=== PATIENT | male | born 1970 | race Two or more races ===

== ENCOUNTER → 2023-04-10 | Outpatient (CLI) | payer MEDICAID | END | disposition home or self-care (01) | LOC: US 09:52 | DX: J90 Pleural effusion, not elsewhere classified (principal) | CPT/HCPCS: 32555; 71045; 76604; C1729; 76942 ==

== ENCOUNTER → 2023-04-16 | Outpatient (CLI) | payer MEDICAID | END | disposition home or self-care (01) | LOC: XYW 09:56 | DX: J90 Pleural effusion, not elsewhere classified (principal) | CPT/HCPCS: 32555; 71045; 76604; C1729; 76942 ==

== ENCOUNTER 2024-08-07 00:07 | Inpatient (IN) | payer MEDICAID ==
[2024-08-07] VITALS (10 sets, daily range): BP systolic 110–157; BP diastolic 62–89; PULSE 66–89; RESP 18–20; TEMP 96.4–98; O2SAT 96–100
[~2024-08-07] VITALS: Ht 172.7 cm; Wt 72.1 kg
[2024-08-07] MEDS ORDERED: MORPHINE SULFATE INJ 2 MG/ml SYRG IV PRN (03:15)
[2024-08-07] MEDS ORDERED: NITROGLYCERIN 0.4 MG SL TAB SL PRN (03:15)
[2024-08-07] MEDS ORDERED: SODIUM BICARB 50mEq/50ml Vial 50 ML in SOD CHL 0.45% 1,000 ML IV SCH (03:15)
[2024-08-07] MEDS: ALBUTEROL SULF 2.5 MG/0.5ML(0.5%) NEB SOLN NEB ONE (03:26)
[2024-08-07] MEDS ORDERED: cloNIDine HCL 0.1 MG TAB PO PRN (03:30)
[2024-08-07 03:47] LABS: Hematocrit 31.2 % (41.0-53.0); Hemoglobin 10.4 g/dL (13.5-17.5); Mean Corpuscular Hemoglobin 31.9 pg (28.0-32.0); Mean Corpuscular Hgb Conc. 33.2 g/dL (32.0-36.0); Mean Corpuscular Volume 96.1 fL (80.0-100.0); Platelet Count (auto) 237 10^3/uL (140-450); Red Blood Cells 3.25 10^6/uL (4.5-5.90); Red Cell Distribution Width 13.7 % (11.8-14.3); White Blood Cell 6.8 10^3/uL (4.4-10.8)
[2024-08-07 03:56] LABS: Band Neutrophils % (manual) 0; Basophils % (manual) 0 (0.0-2.0); Blast Cells 0; Metamyelocytes % 0; Myelocytes % 0; Promyelocytes % 0; Reactive Lymphocytes 0
[2024-08-07 04:05] LABS: Alanine Aminotransferase 22 U/L (7-40); Albumin 3.8 g/dL (3.2-4.8); Anion Gap 10 (5-15); Aspartate Aminotransferase 22 U/L (13-40); Sodium 143 mmol/L (136-145); Total Protein 6.2 g/dL (5.7-8.2)
[2024-08-07 04:21] LABS: Alkaline Phosphatase 184 U/L (46-116); Bilirubin, Total 0.3 mg/dL (0.2-1.0); Blood Urea Nitrogen 71 mg/dL (9-23); Calcium 8.6 mg/dL (8.7-10.4); Carbon Dioxide 16 mmol/L (20-31); Chloride 117 mmol/L (98-107); Glucose 132 mg/dL (74-106)
[2024-08-07 04:22] LABS: Potassium 5.7 mmol/L (3.5-5.1)
[2024-08-07] MEDS: InsuLIN REG 1unit/0.01ml Soln (100units/ml) IV ONE (04:33)
[2024-08-07] MEDS: SODIUM ZIRCONIUM CYCL 10 GM PAK PO ONE (04:39)
[2024-08-07 04:58] LABS: Eosinophils % (manual) 12 (0-7); Lymphocytes % (manual) 15 (10.0-50.0); Monocytes % (manual) 3 (0-12); Platelet Estimate Adequate
[2024-08-07] MEDS: INSULIN LISPRO (HUMAN) 100 UNITS/ML ML SC SCH ×2 (06:12→22:00)
[2024-08-07] MEDS: INSULIN LANTUS (GLARGINE) 1 /0.01ml (100units/ml) SC SCH (06:13)
--- NOTE | 2024-08-07 08:19 | ECG ---
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
[2024-08-07] MEDS: SODIUM BICARB 50mEq/50ml Vial 50 ML in SOD CHL 0.45% 1,000 ML IV SCH ×3 (10:30→22:45)
--- NOTE | 2024-08-07 11:18 | DVHCONRES ---
Date Seen: August 07, 2024 Resident Creating Document: GLENN CROFT History of Present Illness This is a 53-year-old male with PMH congestive heart failure-EF 25%, recurrent pleural effusion, CKD, diabetes mellitus type 2 who was sent to the ER by his PCP because of hyperkalemia. Patient denied any acute complaint. Patient followed [facility] for hemodialysis Saturday//Saturday and has been not going for dialysis for the past 2 weeks. He has a tunneled catheter. Patient denies any fevers/chills/vomiting/diarrhea/nausea/urinary symptoms. Arrival to the ER, patient was vitally stable, CBC showing normocytic anemia, potassium 5.7, BUN/creatinine 71/3.9. Past medical history: Congestive heart failure-EF 25%, recurrent pleural effusion, CKD, diabetes mellitus type 2 Social history: Lives with family, denies smoking/drinking/drug use. Patient seen and examined at the bedside. Started bicarbonate 650 mg TID. Family History: Diabetes mellitus G8 MOTHER Allergies: Coded Allergies: NO KNOWN ALLERGIES (Unverified , 08/07/24) Current Medications Current Medications Medications (Trade) Dose Ordered Sig/Wayne Route PRN Reason Start Time Stop Time Status Last Admin Nitroglycerin (Ntrostat Sublingual) 0.4 mg Q5MINP PRN SL FOR CHEST PAIN 08/07/24 03:15 Morphine Sulfate 2 mg Q30M PRN IV FOR CHEST PAIN 08/07/24 03:15 Sodium Bicarbonate 50 ml/ Sodium Chloride 1,050 ml @ 50 mls/hr Q21H IV 08/07/24 03:15 08/07/24 03:26 DC Sodium Bicarbonate 50 ml/ Sodium Chloride 1,050 ml @ 100 mls/hr [id number] IV 08/07/24 03:30 08/07/24 10:30 Insulin Human Lispro (HumaLOG) AC SC 08/07/24 07:00 Insulin Human Lispro (HumaLOG) HS SC 08/07/24 22:00 Clonidine HCl (Catapres Tablet) UD PRN PO SBP>160 08/07/24 03:30 Insulin Glargine (Lantus) 10 units QAM SC 08/07/24 07:00 Vital Signs Vital Signs Date Time Temp Pulse Resp B/P (MAP) Pulse Ox O2 Delivery O2 Flow Rate FiO2 08/07/24 10:00 96 Room Air 0.0 08/07/24 10:00 21 08/07/24 09:00 97.4 89 18 110/62 (78) 97.4 Physical Exam Patient lying in bed, in no acute distress General: Well-built, afebrile, palor, mucosae are moist Cardiovascular: Regular S1 and S2. No murmurs, gallops or rubs. No JVD elevation. Minimal pedal edema bilaterally Respiratory: Normal B/L air entry on room air. Clear lung sounds on auscultation Abdomen: Soft, nontender, nondistended, normoactive bowel sounds, no rebound tenderness, no organomegaly, no masses Genitourinary: Deferred MSK/skin: Mobilizes 4 limbs. Skin is dry and warm Neurological: No motor, no sensitive deficits, normal speech. Pupils are isocoric and reactive. Psych/Mental Status: A/Ox3 Labs/Diagnostic Data Labs Test 08/07/24 10:53 08/07/24 06:10 08/07/24 03:34 Range/Units POC Glucose 92 70-106 mg/dl White Blood Count 6.8 4.4-10.8 10^3/uL Red Blood Count 3.25 L 4.5-5.90 10^6/uL Hemoglobin 10.4 L 13.5-17.5 g/dL Hematocrit 31.2 L 41.0-53.0 % Mean Corpuscular Volume 96.1 80.0-100.0 fL Mean Corpuscular Hemoglobin 31.9 28.0-32.0 pg Mean Corpuscular Hemoglobin Concent 33.2 32.0-36.0 g/dL Red Cell Distribution Width 13.7 11.8-14.3 % Platelet Count 237 140-450 10^3/uL Mean Platelet Volume 7.6 6.9-10.8 fL Neutrophils (%) (Auto) 37.0-80.0 % Lymphocytes (%) (Auto) 10.0-50.0 % Monocytes (%) (Auto) 0.0-12.0 % Basophils (%) (Auto) 0.0-2.0 % Neutrophils # (Auto) 1.6-8.6 10 ^3/uL Lymphocytes # (Auto) 0.4-5.4 10 ^3/uL Monocytes # (Auto) 0-1.3 10 ^3/uL Differential Total Cells Counted 100.0 100 Neutrophils % (Manual) 70 37.0-80.0 Band Neutrophils % (Manual) 0 Lymphocytes % (Manual) 15 10.0-50.0 Monocytes % (Manual) 3 0-12 Eosinophils % (Manual) 12 H 0-7 Basophils % (Manual) 0 0.0-2.0 Metamyelocytes % (manual) 0 Myelocytes % (Manual) 0 Promyelocytes % (Manual) 0 Blast Cells % (Manual) 0 Reactive Lymphocytes 0 Platelet Estimate Adequate Hemoglobin A1c 6.0 H <5.7 % A1C Total Bilirubin 0.3 0.2-1.0 mg/dL Aspartate Amino Transferase (AST) 22 13-40 U/L Alanine Aminotransferase (ALT) 22 7-40 U/L Alkaline Phosphatase 184 H 46-116 U/L Total Protein 6.2 5.7-8.2 g/dL Albumin 3.8 3.2-4.8 g/dL Assessment ESRD on hemodialysis Hyperkalemia Congestive heart failure-no exacerbation-EF 25% Recurrent pleural effusion Diabetes mellitus type 2-hemoglobin A1c 6 Plan: Given the resolved hyperkalemia, patient denying any acute symptoms, patient is stable to be discharged at this point. No acute nephrology workup indicated at this time. Patient is extensively counseled regarding the importance of routine hemodialysis sessions and medication compliance. Risk and benefits advice, patient agreed to follow up with [facility] dialysis tomorrow. Started p.o. bicarbonate 650 mg TID. Potassium 4.4 now Plan discussed with patient in which all questions have been answered Case discussed with Dr. Obrien Addendum Patient seen and examined, plan discussed with resident. Agree with above, we will follow closely missed 2 weeks of HD HD tomorrow if still here otherwise resume outpt HD Plan discussed with: Patient GLENN CROFT RESIDENT August 07, 2024 11:18 TAYLOR OBRIEN MD August 07, 2024 20:58
[2024-08-07 11:23] LABS: Potassium 4.4 mmol/L (3.5-5.1)
[2024-08-07 11:24] LABS: Anion Gap 11 (5-15); Calcium 8.9 mg/dL (8.7-10.4); Carbon Dioxide 16 mmol/L (20-31); Chloride 118 mmol/L (98-107); Sodium 145 mmol/L (136-145)
[2024-08-07 11:29] LABS: BUN/Creatinine Ratio 17.2 (10.0-20.0)
[2024-08-07 11:30] LABS: Blood Urea Nitrogen 68 mg/dL (9-23); Glucose 166 mg/dL (74-106)
[2024-08-07 11:50] LABS: Magnesium 2.2 mg/dL (1.6-2.6)
[2024-08-07 11:53] LABS: Phosphorus 5.5 mg/dL (2.4-5.1)
--- NOTE | 2024-08-07 12:33 | DVH ---
RENAL ULTRASOUND History: duyen Comparison: None Technique: Multiple real-time sonographic images of the kidney and bladder were obtained in conjuncti on with Doppler imaging. Findings: Bilateral kidneys are echogenic in appearance. The right kidney measures 12 cm and demonstrates no evidence of hydronephrosis, perinephric fluid col lection, or shadowing stone. The left kidney measures 11.3 cm and demonstrates no evidence of hydronephrosis, perinephric fluid co llection, or shadowing stone. Urinary bladder: Prevoid urinary bladder volume is 411 mL. Patient did not have urge to void. Impression: 1. No hydronephrosis. 2. Echogenic kidneys, which can be seen with medical renal disease. 3. Bladder volume 411 cc. Patient did not have urge to urinate.
[2024-08-07] MEDS: SODIUM BICARBONATE 650 MG TAB PO ONE (17:37)
[2024-08-07 18:29] LABS: Sodium Urine 71 mmol/L (40-220)
[2024-08-07 18:37] LABS: Creatinine, Urine 86.37 mg/dL (30.0-125.0)
[2024-08-07 18:40] LABS: Urine Protein/Creatinine Ratio 9.42
[2024-08-07 18:48] LABS: Amphetamine Screen, Urine Neg (NEGATIVE); Barbiturate Scree,Urine Neg (NEGATIVE); Benzodiazephine Screen, Urine Neg (NEGATIVE); Cannabinoid Screen, Urine Neg (NEGATIVE); Cocaine Screen, Urine Neg (NEGATIVE); Opiate Scree,Urine Neg (NEGATIVE); Phencyclidine Screen, Urine Neg (NEGATIVE)
--- NOTE | 2024-08-07 23:09 | DVHHP2 ---
Admitting Diagnosis: Acute on chronic renal failure Severe hyperkalemia History of Present Illness Gabi Hassan, 53-yr-old middle-aged male with known history of cardiomyopathy, EF 20%, congestive heart failure and chronic renal failure -currently on hemodialysis therapy is directly admitted for further eval and management of acute on chronic renal failure complicated by hyperkalemia. In brief summary, patient was recently diagnosed cardiomyopathy, low EF 20% through echocardiogram and MUGA scan at [facility] in april 2024. He was treated for anasarca, bilateral pleural effusions from CHF as well as acute renal failure with serum creatinine high at 2.96 mg/dL and GFR at 17-25 mL/minute. He was then started on hemodialysis therapy by Dr. Doherty. He responded to hemodialysis therapy very well and remains symptom-free for CHF. During his outpatient visit, patient reported satisfactory Urine outputs as well as improvement of symptoms from CHF. He had a question whether he could come off hemodialysis therapy. I advised him to discuss with His aviation safety inspector prior to making decision to discontinue hemodialysis therapy Upon receiving a call from [facility] at evening of 08/06/2024 about his abnormal labs- serum K -7 mM/dL, CO2 16 mM/dL, 81 and creatinine 4.22 mg/dL I tried to reach patient through his cell phone at same hour. However I was not able to contact him for his disbelief that there were not enough reason for someone to call him from healthcare facility scheduling. Finally I was able to contact him at late evening hours and consensus was that he will receive direct bed hospitalization at [facility]. Past Medical History Past medical history records: Reviewed Cardiovascular history: Cardiomyopathy-global hypokinesis, EF 20% moderate MR, dilated left atrium and ventricle by 2D echo, Currently followed by Dr. Hirsch @ [facility] Pacemaker placement Genitourinary history: Chronic kidney disease-CRF on hemodialysis Serum creatinine 3.9 mg/dL, GFR 17 mL/minute Endocrine history: Fairly well-controlled diabetes Hem-oncology history: Chronic iron-deficiency anemia Past Surgical History Tunnel catheter placement in R IJ Pacemaker placement Social History Retired, lives with his spouse History of smoking: Cigarettes: Denies History of smoking E cigarettes: Denies History of smoking marijuana: Denies History of drinking alcohol: Drinks socially in sober manners History of substance abuse: Denies Patient Family History: Diabetes mellitus G8 MOTHER Allergies: Coded Allergies: NO KNOWN ALLERGIES (Unverified , 08/07/24) Home Meds Active Scripts Hydralazine Hcl (Hydralazine Hcl) 50 Mg Tab, 1 TAB PO BID, #180 TAB 3 Refills Prov:GIRMA MABRY MD 08/08/24 Sodium Bicarbonate (Sodium Bicarbonate) 650 Mg Tab, 650 MG PO TID for 90 Days, #270 TAB Prov:GIRMA MABRY MD 08/08/24 Nitroglycerin (NTROSTAT SUBLINGUAL) 0.4 Mg Sl, 0.4 MG SL Q5MINP PRN for 25 Days, #25 TAB Prov:GIRMA MABRY MD 08/08/24 Insulin Lispro (Human) (Humalog) 100 Unit/Ml Inj, 5 UNITS SC AC for 90 Days, INJ Prov:GIRMA MABRY MD 08/08/24 Insulin Glargine (Lantus) 100 Unit/Ml Inj, 15 UNITS SC QAM for 90 Days, #3 INJ Prov:GIRMA MABRY MD 08/08/24 Current Medications Current Medications Medications (Trade) Dose Ordered Sig/[place] Route PRN Reason Start Time Stop Time Status Last Admin Insulin Human Lispro (HumaLOG) HS SC 08/07/24 22:00 08/07/24 22:00 Sodium Bicarbonate 50 ml/ Sodium Chloride 1,050 ml @ 120 mls/hr Q8H45M IV 08/07/24 12:30 08/07/24 12:49 DC 08/07/24 12:30 Sodium Bicarbonate 650 mg TID PO 08/07/24 22:00 08/08/24 06:06 Sodium Bicarbonate 50 ml/ Sodium Chloride 1,050 ml @ 50 mls/hr Q21H IV 08/07/24 22:45 08/07/24 22:45 Review of Systems Constitutional: Denies easy tiredness, denies fever chills weight loss HEENT: Denies headache/conjunctival/ENT pains or congestion, Denies hoarse voice, hearing or visual deficit Neck: Denies cervical spine local/radicular pains, denies goiters/stridor Denies stiffness spasms, reduced ROM, RS: Denies chest congestion, cough, wheezing, SOB, pleuritic ch est pains CVS: Denies angina, palpitation, SOB, edema, orthopnea, PND GI: Denies loss of appetite, abdominal pains, tenderness, N/V/D, Denies melena, GI bleeding,constipation, : Denies dysuria, flank pains, frequency, hematuria, Denies passing foul odor/cloudy turbid urine, nocturia MS: Denies generalized aches/pains, back pains, spasms, stiffness, Denies radicular pains, denies generalized myalgias/muscle weakness EXTs: Denies edema, rash, open wounds, discoloration, radicular pains NEURO: Denies hypersomnolence, confused mental status, Denies focal weakness or seizures/tremors/myoclonic jerks SKIN: Denies rashes or open ulcerated wound ENDOCRINE: Reports polyuria, polydipsia, denies intolerance to heat and cold HEM/LYMPH: Denies easy tiredness, bruising, lymphadenopathy ALLERGY: Denies allergic reactions Psychiatry: Denies anxiety or depression disorder Otherwise the Review of Systems is Negative as per History & Physical Interview: Yes Vital Signs Vital Signs Date Time Temp Pulse Resp B/P (MAP) Pulse Ox O2 Delivery O2 Flow Rate FiO2 08/08/24 10:00 95 Room Air* 0 21 08/08/24 09:00 97.9 76 16 152/81 (104) 97.9 Physical Exam Vital signs Vital Signs Date Time Temp Pulse Resp B/P (MAP) Pulse Ox O2 Delivery O2 Flow Rate FiO2 08/07/24 17:00 98 85 18 139/82 (101) 98 Room Air 0.0 08/07/24 13:00 97.5 79 18 134/73 (93) 96 21 08/07/24 09:00 97.5 79 18 137/73 (93) 96 08/07/24 05:00 97.9 89 20 128/73 (91) 98 Physical exam General appearance: Well-developed, mal-nourished middle-aged male Awake alert oriented x3 no respiratory distress Head: Normocephalic nontraumatic Eyes: EOMI, JENELLE, sclera nonicteric, conjunctive- pale + 1 ENT: No congestion, NSL bilateral symmetrical, oral mucosa dry Neck: Supple, carotid upstroke +2, trachea midline, JVD-0 cm, R IJ-SD catheter site clean, No goiter, no lymph nodes, C spine- Full ROM, no use of sternomastoid Chest: Bilateral symmetrical expansions, No costochondral tenderness Pacemaker site clean Lungs: clear breath sounds all over except reduced at bases CVS: PMI-2 cm lateral to L MCL in fifth ICS , S1- S2 NSR no S3 GI: Abdomen soft, obese, bowel sounds normoactive No focal tenderness, no rebound tenderness No hepatosplenomegaly, no mass no hernia , : No CVA tenderness, no bladder mass palpable, genitalia-NE SKIN: Turgor dry, color pale, no rash, no icterus, no ulcers No varicosity, or wounds EXTs: No edema, color pale, no rash, no ecchymosis, No open wounds Distal pulses +2 capillary refill <2 seconds JOINTS: full range of motion BACK: No apparent lumbosacral spinal muscle tenderness, LYMPH NODES: No cervical, axillary or inguinal lymph nodes Neuro: Awake alert oriented 4, coherent, all cognitives- intact No pronator drift, no focal motor deficit, No focal sensory deficit, DTR +2, gait steady PSYCH: Affect mildly depressed-denies suicidal ideation Labs Test Comprehensive metabolic panel 08/07/24 10:53 08/07/24 06:10 08/07/24 03:34 Range/Units Sodium 143 136-145 mmol/L Potassium 5.7 3.5-5.1 mmol/L Chloride 117 98-107 mmol/L CO2 16 20--31 mmol/L BUN 71 09-23 mg/dL Creatinine 3.95 0.7 -1.3 mg/dL Anion gap 10 GFR 17 > 90 mL/minute POC Glucose 92 70-106 mg/dl Serum calcium 8.6 Complete blood count (CBC) White Blood Count 6.8 4.4-10.8 10^3/uL Red Blood Count 3.25 L 4.5-5.90 10^6/uL Hemoglobin 10.4 L 13.5-17.5 g/dL Hematocrit 31.2 L 41.0-53.0 % Mean Corpuscular Volume 96.1 80.0-100.0 fL Mean Corpuscular Hemoglobin 31.9 28.0-32.0 pg Mean Corpuscular Hemoglobin Concent 33.2 32.0-36.0 g/dL Red Cell Distribution Width 13.7 11.8-14.3 % Platelet Count 237 140-450 10^3/uL Mean Platelet Volume 7.6 6.9-10.8 fL Neutrophils (%) (Auto) 37.0-80.0 % Lymphocytes (%) (Auto) 10.0-50.0 % Monocytes (%) (Auto) 0.0-12.0 % Basophils (%) (Auto) 0.0-2.0 % Neutrophils # (Auto) 1.6-8.6 10 ^3/uL Lymphocytes # (Auto) 0.4-5.4 10 ^3/uL Monocytes # (Auto) 0-1.3 10 ^3/uL Differential Total Cells Counted 100.0 100 Neutrophils % (Manual) 70 37.0-80.0 Band Neutrophils % (Manual) 0 Lymphocytes % (Manual) 15 10.0-50.0 Monocytes % (Manual) 3 0-12 Eosinophils % (Manual) 12 H 0-7 Basophils % (Manual) 0 0.0-2.0 Metamyelocytes % (manual) 0 Myelocytes % (Manual) 0 Promyelocytes % (Manual) 0 Blast Cells % (Manual) 0 Reactive Lymphocytes 0 Platelet Estimate Adequate Hemoglobin A1c 6.0 H <5.7 % A1C Total Bilirubin 0.3 0.2-1.0 mg/dL Aspartate Amino Transferase (AST) 22 13-40 U/L Alanine Aminotransferase (ALT) 22 7-40 U/L Alkaline Phosphatase 184 H 46-116 U/L Total Protein 6.2 5.7-8.2 g/dL Albumin 3.8 3.2-4.8 g/dL [facility] Test Date: 2024-08-07 Test Time: 04:51:32 Pat Name: DARLYN AQUINO Department: Room: 0222T B 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 DICTATED BY: DICTATED DATE/TIME:08/07/24 0451 ELECTRONICALLY SIGNED BY: ELECTRONICALLY CO-SIGNED BY: Results Labs Test 08/08/24 05:50 08/08/24 05:04 08/07/24 17:00 08/07/24 10:53 Range/Units POC Glucose 122 H 70-106 mg/dl White Blood Count 6.0 4.4-10.8 10^3/uL Red Blood Count 3.11 L 4.5-5.90 10^6/uL Hemoglobin 9.9 L 13.5-17.5 g/dL Hematocrit 29.8 L 41.0-53.0 % Mean Corpuscular Volume 95.8 80.0-100.0 fL Mean Corpuscular Hemoglobin 31.8 28.0-32.0 pg Mean Corpuscular Hemoglobin Concent 33.2 32.0-36.0 g/dL Red Cell Distribution Width 13.9 11.8-14.3 % Platelet Count 227 140-450 10^3/uL Mean Platelet Volume 7.8 6.9-10.8 fL Neutrophils (%) (Auto) 37.0-80.0 % Lymphocytes (%) (Auto) 10.0-50.0 % Monocytes (%) (Auto) 0.0-12.0 % Eosinophils (%) (Auto) 0.0-7.0 % Basophils (%) (Auto) 0.0-2.0 % Neutrophils # (Auto) 1.6-8.6 10 ^3/uL Lymphocytes # (Auto) 0.4-5.4 10 ^3/uL Monocytes # (Auto) 0-1.3 10 ^3/uL Differential Total Cells Counted 100.0 100 Neutrophils % (Manual) 65 37.0-80.0 Band Neutrophils % (Manual) 0 Lymphocytes % (Manual) 16 10.0-50.0 Monocytes % (Manual) 3 0-12 Eosinophils % (Manual) 16 H 0-7 Basophils % (Manual) 0 0.0-2.0 Metamyelocytes % (manual) 0 Myelocytes % (Manual) 0 Promyelocytes % (Manual) 0 Blast Cells % (Manual) 0 Reactive Lymphocytes 0 Platelet Estimate Adequate Anisocytosis (manual) Slight Sarika Cells Few Sodium Level 145 136-145 mmol/L Potassium Level 4.6 3.5-5.1 mmol/L Chloride Level 117 H 98-107 mmol/L Carbon Dioxide Level 17 L 20-31 mmol/L Anion Gap 11 5-15 Blood Urea Nitrogen 63 H 9-23 mg/dL Creatinine 3.59 H 0.700-1.30 mg/dL Glomerular Filtration Rate Calc 19 >90 mL/min BUN/Creatinine Ratio 17.5 10.0-20.0 Serum Glucose 117 H 74-106 mg/dL Calcium Level 8.4 L 8.7-10.4 mg/dL Total Bilirubin 0.3 0.2-1.0 mg/dL Aspartate Amino Transferase (AST) 20 13-40 U/L Alanine Aminotransferase (ALT) 22 7-40 U/L Alkaline Phosphatase 167 H 46-116 U/L Total Protein 5.9 5.7-8.2 g/dL Albumin 3.5 3.2-4.8 g/dL Urine Creatinine 86.37 30.0-125.0 mg/dL Urine Protein/Creatinine Ratio 9.42 Urine Sodium 71 40-220 mmol/L Urine Potassium 18 12-62 mmol/L Urine Total Protein 814.0 H 1-14 mg/dL Urine Opiates Screen Neg NEGATIVE Urine Fentanyl Screen Neg NEGATIVE Urine Barbiturates Screen Neg NEGATIVE Urine Phencyclidine Screen Neg NEGATIVE Urine Amphetamines Screen Neg NEGATIVE Urine Benzodiazepines Screen Neg NEGATIVE Urine Cocaine Screen Neg NEGATIVE Urine Cannabinoids Screen Neg NEGATIVE Phosphorus Level 5.5 H 2.4-5.1 mg/dL Magnesium Level 2.2 1.6-2.6 mg/dL Test 08/07/24 03:34 Range/Units Hemoglobin A1c 6.0 H <5.7 % A1C Vitamin D 25-Hydroxy 24.8 L 30.0-100 ng/mL Parathyroid Hormone (Intact) 135.2 H 18.4-80.1 pg/mL EC IV in five point three Primary Diagnosis Acute on chronic renal failure Severe hyperkalemia Admitting Diagnosis: 1. Acute on chronic renal failure ESRD from diabetic nephropathy Cardiorenal syndrome 2. Hyperkalemia from acute renal failure 3. Acute kidney injury from a. Intravascular volume depletion b. CKD from diabetes and hypertensive c. Cardiorenal syndrome 4. Fairly well-controlled NIDDM 5. Noncompliance with hemodialysis 2' Diagnosis/Comorbidities Cardiomyopathy Medical decision making Overall patient's hemodynamic condition appears clinically ill from development of Acute on chronic renal failure complicated by hyperkalemia-lab results from [facility] reflects serum K 7, BUN 81 Creatinine 4.22 mg/dL GFR 17 mL ---priority is to deploy medical treatment for hyperkalemia -correct state of hypovolemia acute kidney injury -refer patient to aviation safety inspector ---recommended patient tohypotonic saline with bi carb infusion, Hum R IV, albuterol medneb treatment for management of hyperkalemia ..... Recommended injection Lantus 10 units subQ daily and Humalog through sliding scale for management of diabetes Plan Treatment plans as of today Admit to telemetry Normal saline with two amps of bicarb at 100 mL/hr Humulin R 5 units IV push with D 50 % 50 mL x one dose Lokelma 30 g p.o. x1 dose Inj Lantus 10 units subQ daily Inj. Humalog through sliding scale Dr. Cabello on consult for management of CRF through dialysis Reconciled home medications Follow-up CBC CMP ADA 1800 memo, low salt 2 g renal diet VTE precautions Update patient The patient and/or family is well informed by me about 1. Clinical impression, treatment plans, side effects of medications, course of the disease and guarded prognosis 2. All patient's question/ concerns raised by patient are satisfactorily addres sed by me Plan discussed with: Patient Code Visit Code Visit Total Time (mins): 120 GIRMA MABRY MD August 07, 2024 23:09
[2024-08-07] MEDS: SODIUM BICARBONATE 650 MG TAB PO SCH (23:10)
[2024-08-08 01:00] VITALS: BP 157/88; PULSE 83; RESP 19; TEMP 96.5; O2SAT 97
[2024-08-08 05:00] VITALS: BP 159/91; PULSE 79; RESP 19; TEMP 96.3; O2SAT 95
[2024-08-08 06:21] LABS: Hematocrit 29.8 % (41.0-53.0); Hemoglobin 9.9 g/dL (13.5-17.5); Mean Corpuscular Hemoglobin 31.8 pg (28.0-32.0); Mean Corpuscular Hgb Conc. 33.2 g/dL (32.0-36.0); Mean Corpuscular Volume 95.8 fL (80.0-100.0); Platelet Count (auto) 227 10^3/uL (140-450); Red Blood Cells 3.11 10^6/uL (4.5-5.90); Red Cell Distribution Width 13.9 % (11.8-14.3)
[2024-08-08 06:27] LABS: Band Neutrophils % (manual) 0; Basophils % (manual) 0 (0.0-2.0); Blast Cells 0; Metamyelocytes % 0; Myelocytes % 0; Promyelocytes % 0; Reactive Lymphocytes 0
[2024-08-08 06:43] LABS: Anisocytosis Slight; Eosinophils % (manual) 16 (0-7); Lymphocytes % (manual) 16 (10.0-50.0); Monocytes % (manual) 3 (0-12); Platelet Estimate Adequate
[2024-08-08] MEDS ORDERED: SODIUM CHL 0.9% 1000 ML BAG XX ONE (07:00)
[2024-08-08 08:00] VITALS: PULSE 76; PULSE 81; RESP 16; O2SAT 95
[2024-08-08 09:00] VITALS: BP 152/81; PULSE 76; RESP 16; TEMP 97.9; O2SAT 95
[2024-08-08 09:10] LABS: Alanine Aminotransferase 22 U/L (7-40); Albumin 3.5 g/dL (3.2-4.8); Anion Gap 11 (5-15); Aspartate Aminotransferase 20 U/L (13-40); BUN/Creatinine Ratio 17.5 (10.0-20.0); Potassium 4.6 mmol/L (3.5-5.1); Sodium 145 mmol/L (136-145); Total Protein 5.9 g/dL (5.7-8.2)
[2024-08-08 09:11] LABS: Alkaline Phosphatase 167 U/L (46-116); Bilirubin, Total 0.3 mg/dL (0.2-1.0); Blood Urea Nitrogen 63 mg/dL (9-23); Calcium 8.4 mg/dL (8.7-10.4); Carbon Dioxide 17 mmol/L (20-31); Chloride 117 mmol/L (98-107); Glucose 117 mg/dL (74-106)
[2024-08-08] MEDS ORDERED: NITR0.4S29 SL (09:37)
[2024-08-08] MEDS ORDERED: SODI650T PO (09:37)
[2024-08-08] MEDS ORDERED: INSLANTI SC (09:37)
[2024-08-08] MEDS ORDERED: HYDR50TA47 PO (09:37)
[2024-08-08] MEDS ORDERED: INSLISPI SC (09:37)
--- NOTE | 2024-08-08 09:47 | DVHDS2 ---
Discharge Summary Date of Admission August 07, 2024 at 02:14 Date of Discharge: August 08, 2024 Admitting Diagnosis Acute on chronic renal failure Hyperkalemia Fairly well-controlled NIDDM and hypertension Noncompliance with hemodialysis therapy Wounds: None Labs/Diagnostic Data: Laboratory Results Test 08/08/24 05:50 08/08/24 05:04 08/07/24 17:00 08/07/24 10:53 POC Glucose 122 mg/dl (70-106) White Blood Count 6.0 10^3/uL (4.4-10.8) Red Blood Count 3.11 10^6/uL (4.5-5.90) Hemoglobin 9.9 g/dL (13.5-17.5) Hematocrit 29.8 % (41.0-53.0) Mean Corpuscular Volume 95.8 fL (80.0-100.0) Mean Corpuscular Hemoglobin 31.8 pg (28.0-32.0) Mean Corpuscular Hemoglobin Concent 33.2 g/dL (32.0-36.0) Red Cell Distribution Width 13.9 % (11.8-14.3) Platelet Count 227 10^3/uL (140-450) Mean Platelet Volume 7.8 fL (6.9-10.8) Neutrophils (%) (Auto) % (37.0-80.0) Lymphocytes (%) (Auto) % (10.0-50.0) Monocytes (%) (Auto) % (0.0-12.0) Eosinophils (%) (Auto) % (0.0-7.0) Basophils (%) (Auto) % (0.0-2.0) Neutrophils # (Auto) 10 ^3/uL (1.6-8.6) Lymphocytes # (Auto) 10 ^3/uL (0.4-5.4) Monocytes # (Auto) 10 ^3/uL (0-1.3) Differential Total Cells Counted 100.0 (100) Neutrophils % (Manual) 65 (37.0-80.0) Band Neutrophils % (Manual) 0 Lymphocytes % (Manual) 16 (10.0-50.0) Monocytes % (Manual) 3 (0-12) Eosinophils % (Manual) 16 (0-7) Basophils % (Manual) 0 (0.0-2.0) Metamyelocytes % (manual) 0 Myelocytes % (Manual) 0 Promyelocytes % (Manual) 0 Blast Cells % (Manual) 0 Reactive Lymphocytes 0 Platelet Estimate Adequate Anisocytosis (manual) Slight [place] Cells Few Sodium Level 145 mmol/L (136-145) Potassium Level 4.6 mmol/L (3.5-5.1) Chloride Level 117 mmol/L (98-107) Carbon Dioxide Level 17 mmol/L (20-31) Anion Gap 11 (5-15) Blood Urea Nitrogen 63 mg/dL (9-23) Creatinine 3.59 mg/dL (0.700-1.30) Glomerular Filtration Rate Calc 19 mL/min (>90) BUN/Creatinine Ratio 17.5 (10.0-20.0) Serum Glucose 117 mg/dL (74-106) Calcium Level 8.4 mg/dL (8.7-10.4) Total Bilirubin 0.3 mg/dL (0.2-1.0) Aspartate Amino Transferase (AST) 20 U/L (13-40) Alanine Aminotransferase (ALT) 22 U/L (7-40) Alkaline Phosphatase 167 U/L (46-116) Total Protein 5.9 g/dL (5.7-8.2) Albumin 3.5 g/dL (3.2-4.8) Urine Creatinine 86.37 mg/dL (30.0-125.0) Urine Protein/Creatinine Ratio 9.42 Urine Sodium 71 mmol/L (40-220) Urine Potassium 18 mmol/L (12-62) Urine Total Protein 814.0 mg/dL (1-14) Urine Opiates Screen Neg (NEGATIVE) Urine Fentanyl Screen Neg (NEGATIVE) Urine Barbiturates Screen Neg (NEGATIVE) Urine Phencyclidine Screen Neg (NEGATIVE) Urine Amphetamines Screen Neg (NEGATIVE) Urine Benzodiazepines Screen Neg (NEGATIVE) Urine Cocaine Screen Neg (NEGATIVE) Urine Cannabinoids Screen Neg (NEGATIVE) Phosphorus Level 5.5 mg/dL (2.4-5.1) Magnesium Level 2.2 mg/dL (1.6-2.6) Test 08/07/24 03:34 Hemoglobin A1c 6.0 % A1C (<5.7) Vitamin D 25-Hydroxy 24.8 ng/mL (30.0-100) Parathyroid Hormone (Intact) 135.2 pg/mL (18.4-80.1) Other Laboratory Tests 08/08/24 05:04 Brief Hx & Hospital Course: Brief history of present illness History of Present Illness 53-year-old middle-aged male with known history of cardiomyopathy, Recurrent CHF and chronic renal failure is directly admitted for further eval and management of acute on chronic renal failure complicated by hyperkalemia. Apparently patient had skipped hemodialysis for more than 10 days. His labs were Remarkably abnormal for- serum K -7 mM/dL, CO2 16 mM/dL, 81 and cr- 4.22 mg/dL Upon receiving a call from [employer] at evening of 08/06/2024 about his abnormal labs, my initial attempts to reach him through four were unsuccessful Finally I was able to contact him and consensus was to hospitalize on telemetry bed Consults/Reason for consult Dr. Cabello-nephrology Operations or Procedures Treatment of hyperkalemia, uncontrolled diabetes and hypertension Recommended hemodialysis Final Diagnosis/Problems List Acute on chronic renal failure Hyperkalemia Well-controlled hypertension Fairly well-controlled NIDDM Noncompliance Secondary Diagnosis: Cardiomyopathy Discharge Disposition: Home Discharge Instruct/Medications Diet: Consistent carbohydrate, Cardiac 2g Na,low cholest, Renal Diet comment: 1800 calorie ADA low carb, low-salt 2 g renal diet Activity: Light activity Follow Up/Referral: Dr. Jose L Mabry in 1-[address] Cabello as of today for hemodialysis at 2:45 p.m. Medications: Please refer to discharge med rec 60 Discharge Statement: "Patient was advised to return to the ER or call 911 if any headaches, dizziness, shortness of breath, chest pain, abdominal pain, bleeding, fevers, or worsening of medical condition. Patient was counseled about treatment plan, medications, possible side effects, patientverbalized understanding. All questions were answered to the best of my ability. This discharge took greater then 30 minutes in planning, reviewing documentation, counseling the patient, and discussing with other team members." ASSESSMENT ASSESSMENT Assessment Acute on chronic renal failure Hyperkalemia Well-controlled hypertension Fairly well-controlled NIDDM Noncompliance GIRMA MABRY MD August 08, 2024 09:47
[2024-08-08 10:00] VITALS: O2SAT 95
== END 2024-08-08 11:30 | disposition home or self-care (01) | DRG 425 ==
LOC: TELE-CENTR 02:14
PROVIDERS: ADMIT Specialist; ATTEND Specialist
DX: E87.5 Hyperkalemia (principal); I13.2 Hypertensive heart and chronic kidney disease with heart failure and with stage 5 chronic kidney disease, or end stage renal disease; N17.9 Acute kidney failure, unspecified; N18.6 End stage renal disease; I42.9 Cardiomyopathy, unspecified; E11.22 Type 2 diabetes mellitus with diabetic chronic kidney disease; I50.9 Heart failure, unspecified; Z95.0 Presence of cardiac pacemaker; Z79.4 Long term (current) use of insulin; Z79.899 Other long term (current) drug therapy; Z91.158 Patient's noncompliance with renal dialysis for other reason; Z99.2 Dependence on renal dialysis
CPT/HCPCS: 36415; 76775; 80048; 80053; 80307; 82306; 82570; 82962; 83036; 83735; 83970; 84100; 84133; 84156; 84300; 85007; 85027; 93005; 94640; G0378; J1815

== ENCOUNTER 2024-10-22 16:37 | Inpatient (IN) | payer MEDICAID ==
[~2024-10-22] VITALS: Ht 172.7 cm; Wt 71.6 kg
[~2024-10-22 16:37] MED LIST: HYDR50TA47 PO; INSLANTI SC; INSLISPI SC; NITR0.4S29 SL; SODI650T PO
--- NOTE | 2024-10-22 16:48 | ED.PDOC ---
HPI Comments 54y M who presents to the ED via EMS for chief complaint of chest pain. EMS states pt was at dialysis and called EMS he started to have chest pain. Pt recieved dialysis for approx 45 mins. Fire arrived on scene first and pt was given 324 ASA and 0.4 nitro and EMS was caleld afterwards. Pt states the pain is substernal, constant, nonradiating, pressure like in nature, with no associated exacerbating or relieving factors. Pt was having associated shortness of breath, bilateral, hand cramping which have now been alleviated upon ED arrival. Pt in the ED, otherwise denies any other symptoms at this time, Chief Complaint: Chest Pain Time Seen by MD: 16:45 Reviewed Notes: Nurses Notes, Hog Scraper Notes, Medications, Allergies (No allergies to medications) Allergies: Coded Allergies: NO KNOWN ALLERGIES (Unverified , 08/07/24) Home Meds Active Scripts Hydralazine Hcl (Hydralazine Hcl) 50 Mg Tab, 1 TAB PO BID, #180 TAB 3 Refills Prov:GIRMA MABRY MD 08/08/24 Sodium Bicarbonate (Sodium Bicarbonate) 650 Mg Tab, 650 MG PO TID for 90 Days, #270 TAB Prov:GIRMA MBARY MD 08/08/24 Nitroglycerin (NTROSTAT SUBLINGUAL) 0.4 Mg Sl, 0.4 MG SL Q5MINP PRN for 25 Days, #25 TAB Prov:GIRMA MABRY MD 08/08/24 Insulin Lispro (Human) (Humalog) 100 Unit/Ml Inj, 5 UNITS SC AC for 90 Days, INJ Prov:GIRMA MABRY MD 08/08/24 Insulin Glargine (Lantus) 100 Unit/Ml Inj, 15 UNITS SC QAM for 90 Days, #3 INJ Prov:GIRMA MABRY MD 08/08/24 Information Source: Patient, Emergency Med Personnel Mode of Arrival: EMS Brought in by: EMS Severity: Moderate Timing: Minutes, Hours Duration: Since onset Prehospital treatment: 12 Lead EKG, ASA, NTG Location: Substernal Radiation: No Radiation Quality: Pressure Onset: At Rest Cardiac Risk Factors: Hyperlipidemia, HTN, Diabetes History of: Similar pain in past Modifying Factors: Nothing Associated Signs and Symptoms: SOB Past Medical History PAST MEDICAL HISTORY: DM, ESRD, High Lipids, HTN Surgical History: Denies all surgeries Family History Family History: Family hx of DM Social History Smoker: Non-Smoker Alcohol: Occasionally Drugs: Denies Drug Use Lives In: Home Constitutional: denies: chills, diaphoresis, fatigue, fever, malaise, sweats, weakness, others EENTM: denies: blurred vision, double vision, ear bleeding, ear discharge, ear drainage, ear pain, ear ringing, eye pain, eye redness, hearing loss, mouth pain, mouth swelling, nasal discharge, nose bleeding, nose congestion, nose pain, photophobia, tearing, throat pain, throat swelling, voice changes, others Respiratory: reports: shortness of breath; denies: cough, hemoptysis, orthopnea, SOB at rest, SOB with excertion, stridor, wheezing, others Cardiovascular: reports: chest pain; denies: dizzy spells, diaphoresis, Dyspnea on exertion, edema, irregular heart beat, left arm pain, lightheadedness, palpitations, PND, syncope, others Gastrointestinal: denies: abdomen distended, abdominal pain, blood streaked bowels, constipated, diarrhea, dysphagia, difficulty swallowing, hematemesis, melena, nausea, poor appetite, poor fluid intake, rectal bleeding, rectal pain, vomiting, others Genitourinary: denies: burning, dysuria, flank pain, frequency, hematuria, inc ontinence, penile discharge, penile sore, pain, testicle pain, testicle swelling, urgency, others Neurological: denies: dizziness, fainting, headache, left sided numbness, left sided weakness, numbness, paresthesia, pre-existing deficit, right sided numbness, right sided weakness, seizure, speech problems, tingling, tremors, weakness, others Musculoskeletal: denies: back pain, gout, joint pain, joint swelling, muscle pain, muscle stiffness, neck pain, others Integumetry: denies: bruises, change in color, change in hair/nails, dryness, laceration, lesions, lumps, rash, wounds, others Allergic/Immunocompromised: denies: Difficulty Healing, Frequent Infections, Hives, Itching, others Hematologic/Lymphatic: denies: anemia, blood clots, easy bleeding, easy bruising, swollen glands, others Endocrine: denies: excessive hunger, excessive sweating, excessive thirst, excessive urination, flushing, intolerance to cold, intolerance to heat, unexplained weight gain, unexplained weight loss, others Psychiatric: denies: anxiety, bipolar disorder, depression, hopeless, panic disorder, schizophrenia, sleepless, suicidal, others All Other Systems: Reviewed and Negative Physical Exam General Appearance: Moderate Distress HEENT: Normal ENT Inspection, Pharynx Normal, TMs Normal Neck: Full Range of Motion, Non-Tender, Normal, Normal Inspection Respiratory: Chest Non-Tender, Decreased Breath Sounds, Lungs Clear, No Accessory Muscle Use, Respiratory Distress Cardiovascular: No Edema, No JVD, No Murmur, No Gallop, Normal Peripheral Pulses, Regular Rate/Rhythm, Other (Denzel catheter to the right chest) Breast Exam: Deferred Gastrointestinal: No Organomegaly, Non Tender, No Pulsatile Mass, Normal Bowel Sounds, Soft Genitalia: Deferred Pelvic: Deferred Rectal: Deferred Extremities: No calf tenderness, Normal capillary refill, Normal inspection, Normal range of motion, Non-tender, No pedal edema Musculoskeletal : Apperance: Normal Neurologic: Alert, jewish thought professor II-XII nml as Tested, Motor Weakness, Normal Affect, Normal Mood, No Sensory Deficits Cerebellar Function: Normal Reflexes: Normal Skin: Dry, Normal Color, Warm Lymphatic: No Adenopathy EKG EKG : Pulse Rate (adult): 77 Stout: Normal Cardiac Rhythm: NSR Block: None Hypertrophy: None ST: Normal Was a procedure done? Was a procedure done?: No Sedation Sedation?: No CP Differential Dx Differential Diagnosis: A-fib, A-Flutter, Angina, Anxiety / Panic Attack, Atrial Dysrhythmia, Electrolyte Disorder, Heart Failure, PVC's Differential Diagnosis: HTN Essential, HTN Accelerated, HTN Encephalopathy, Medical NonCompliance Differential Diagnosis: Chest Wall Pain, Pericarditis X-Ray, Labs, Meds, VS Vital Signs Date Time Temp Pulse Resp B/P (MAP) Pulse Ox O2 Delivery O2 Flow Rate FiO2 10/22/24 17:49 179/109 10/22/24 17:46 93 Room Air* 0 21 10/22/24 17:39 80 16 96 Room Air* 0 21 10/22/24 17:33 71 10/22/24 17:24 97.6 77 16 175/96 (122) 97 97.6 10/22/24 16:48 77 10/22/24 16:40 77 10/22/24 16:39 98.7 88 22 199/122 94 98.7 10/22/24 16:38 113 Lab Test 10/22/24 17:53 10/22/24 17:26 10/22/24 16:55 Range/Units Troponin I High Sensitivity 18 19 </=54 ng/L POC Glucose 222 H 70-106 mg/dl White Blood Count 7.5 4.4-10.8 10^3/uL Red Blood Count 3.99 L 4.5-5.90 10^6/uL Hemoglobin 12.6 L 13.5-17.5 g/dL Hematocrit 35.9 L 41.0-53.0 % Mean Corpuscular Volume 90.1 80.0-100.0 fL Mean Corpuscular Hemoglobin 31.7 28.0-32.0 pg Mean Corpuscular Hemoglobin Concent 35.2 32.0-36.0 g/dL Red Cell Distribution Width 13.9 11.8-14.3 % Platelet Count 186 140-450 10^3/uL Mean Platelet Volume 7.4 6.9-10.8 fL Neutrophils (%) (Auto) 37.0-80.0 % Lymphocytes (%) (Auto) 10.0-50.0 % Monocytes (%) (Auto) 0.0-12.0 % Eosinophils (%) (Auto) 0.0-7.0 % Basophils (%) (Auto) 0.0-2.0 % Neutrophils # (Auto) 1.6-8.6 10 ^3/uL Lymphocytes # (Auto) 0.4-5.4 10 ^3/uL Monocytes # (Auto) 0-1.3 10 ^3/uL Differential Total Cells Counted 100.0 100 Neutrophils % (Manual) 64 37.0-80.0 Band Neutrophils % (Manual) 1 Lymphocytes % (Manual) 14 10.0-50.0 Monocytes % (Manual) 6 0-12 Eosinophils % (Manual) 15 H 0-7 Basophils % (Manual) 0 0.0-2.0 Metamyelocytes % (manual) 0 Myelocytes % (Manual) 0 Promyelocytes % (Manual) 0 Blast Cells % (Manual) 0 Reactive Lymphocytes 0 Platelet Estimate Adequate Red Blood Cell Morphology Normal Sodium Level 142 136-145 mmol/L Potassium Level 4.5 3.5-5.1 mmol/L Chloride Level 107 98-107 mmol/L Carbon Dioxide Level 25 20-31 mmol/L Anion Gap 10 5-15 Blood Urea Nitrogen 33 H 9-23 mg/dL Creatinine 3.13 H 0.700-1.30 mg/dL Glomerular Filtration Rate Calc 23 >90 mL/min BUN/Creatinine Ratio 10.5 10.0-20.0 Serum Glucose 219 H 74-106 mg/dL Calcium Level 9.0 8.7-10.4 mg/dL Magnesium Level 2.2 1.6-2.6 mg/dL B-Type Natriuretic Peptide 434.33 0-100 pg/mL Current Medications Medications (Trade) Dose Ordered Sig/Way[place] Route Start Time Stop Time Status Last Admin Hydralazine HCl (Apresoline Injection) 15 mg ONCE ONCE IV 10/22/24 17:45 10/22/24 17:54 DC 10/22/24 17:49 CHEST RADIOGRAPH IMPRESSION: Mild bibasilar airspace disease. Small bilateral pleural effusions. The patient was given hydralazine 15 mg IV push The patient's BUN is 33 and a creatinine is three three The BUN The patient is being admitted at this time we The patient's troponin level is within normal limits The patient is being admitted at this time The patient understands and agrees with the management. A cardiology consult will be sent Images Reviewed?: Images reviewed and evaluated by me Time of 1ST Reevaluation: 18:44 Reevaluation 1ST: Unchanged Patient Education/Counseling: Diagnosis, Treatment, Prognosis Family Education/Counseling: No Family Present SEPSIS Sepsis Screen Physician Orders Heplock Iv (10/22/24 16:38) Sqe (10/22/24 16:38) Blood Pressure (10/22/24 16:38) Pulse Oximetry (10/22/24 16:38) Electrocardigram (10/22/24 16:38) Troponin-I Hs (10/22/24 19:38) Electrocardigram (10/22/24 17:38) Electrocardigram (10/22/24 19:38) Chest Portable (10/22/24 16:41) Vital Signs Date Time Temp Pulse Resp B/P (MAP) Pulse Ox O2 Delivery O2 Flow Rate FiO2 10/22/24 17:49 179/109 10/22/24 17:46 93 Room Air* 0 21 10/22/24 17:39 80 16 96 Room Air* 0 21 10/22/24 17:33 71 10/22/24 17:24 97.6 77 16 175/96 (122) 97 97.6 10/22/24 16:48 77 10/22/24 16:40 77 10/22/24 16:39 98.7 88 22 199/122 94 98.7 10/22/24 16:38 113 Laboratory Tests Test 10/22/24 16:55 White Blood Count 7.5 10^3/uL (4.4-10.8) Medications Medications Dose Ordered Sig/[place] Route Start Time Stop Time Status Last Admin Dose Admin Hydralazine HCl 15 mg ONCE ONCE IV 10/22/24 17:45 10/22/24 17:54 DC 10/22/24 17:49 Departure 1 Departure Time of Disposition: 18:44 Impression: Primary Impression: Acute coronary syndrome Additional Impression: Acute diastolic heart failure Disposition: ADMITTED INPATIENT Admit to: Tele Condition: Fair Critical Care Note Critical Care Time?: Yes (45 min-critical care time only) Stability Stability form required: Yes Unstable for transfer: Telemetry monitoring (Telemetry monitoring required), ED Physician Assesment (Clinical assesment) Heart Score Heart Score: Heart Score Response (Comments) Value History Slightly Suspicious 0 EKG Normal 0 Age 45-64 1 Risk Factors >3 or Hx ASHD 2 Troponin Normal limit 0 Total 3 I personally scribed for FRANSISCA ANDERSON MD (RAIZASANA MARÍA) on 10/22/24 at 16:48. Electronically submitted by Tamiko Elliott ([employer]). I personally scribed for FRANSISCA ANDERSON MD (RAIZASANA MARÍA) on 10/22/24 at 18:06. Electronically submitted by Tamiko Elliott ([employer]). FRANSISCA ANDERSON MD Oct 22, 2024 16:48
[2024-10-22 17:04] LABS: Hematocrit 35.9 % (41.0-53.0); Hemoglobin 12.6 g/dL (13.5-17.5); Mean Corpuscular Hemoglobin 31.7 pg (28.0-32.0); Mean Corpuscular Volume 90.1 fL (80.0-100.0)
[2024-10-22 17:25] LABS: Potassium 4.5 mmol/L (3.5-5.1); Sodium 142 mmol/L (136-145)
[2024-10-22 17:26] LABS: Anion Gap 10 (5-15); Calcium 9.0 mg/dL (8.7-10.4); Carbon Dioxide 25 mmol/L (20-31)
[2024-10-22 17:28] LABS: Chloride 107 mmol/L (98-107)
[2024-10-22 17:31] LABS: BUN/Creatinine Ratio 10.5 (10.0-20.0)
[2024-10-22 17:32] LABS: Magnesium 2.2 mg/dL (1.6-2.6); RBC Morphology Normal; Total Cells Counted 100.0 (100)
[2024-10-22 17:33] LABS: Blood Urea Nitrogen 33 mg/dL (9-23); Glucose 219 mg/dL (74-106)
--- NOTE | 2024-10-22 17:38 | DVH ---
CHEST RADIOGRAPH REASON FOR EXAM: Chest pain COMPARISON: XY CHEST PORTABLE on DOS: 04/18/23, XY CHEST PORTABLE on DOS: 04/16/23, XY CHEST PORTABLE o n DOS: 04/11/23, XY CHEST PORTABLE on DOS: 04/10/23, XY CHEST PORTABLE on DOS: 03/29/23 TECHNIQUE: One view of the chest is provided FINDINGS: The cardiomediastinal silhouette is stable. There is an AICD. There is a right chest tunnel ed dialysis catheter with the tip projecting over the cavoatrial junction. There is small bilateral p leural effusion. There is no pneumothorax. There is mild bibasilar airspace disease. IMPRESSION: Mild bibasilar airspace disease. Small bilateral pleural effusions.
[2024-10-22 17:39] VITALS: PULSE 80; RESP 16; O2SAT 96
[2024-10-22] MEDS: hydrALAZINE HCL 20 MG/ML VL IV ONE (17:49)
[2024-10-22] MEDS ORDERED: NITROGLYCERIN 0.4 MG SL TAB SL PRN (19:00)
[2024-10-22] MEDS ORDERED: MORPHINE SULFATE INJ 2 MG/ml SYRG IV PRN (19:00)
[2024-10-22] MEDS ORDERED: ACETAMINOPHEN 325 MG TAB PO PRN (19:00)
[2024-10-22] MEDS ORDERED: DEXTROSE (50%) 50ML SYRG IV PRN (19:00)
[2024-10-22] MEDS ORDERED: ONDANSETRON HCL 4 MG/2 ML VIAL IV PRN (19:00)
--- NOTE | 2024-10-22 19:01 | ECG ---
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
--- NOTE | 2024-10-22 19:01 | ECG ---
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
--- NOTE | 2024-10-22 20:23 | DVHHP2 ---
History of Present Illness Reason for Visit: Chest pain History of Present Illness 74-year-old male presents for evaluation of chest pain. Patient endorses that while on dialysis today 45 minutes into treatment he developed substernal chest pressure/tightness with shortness for breath and extremity tingling. He states that over the past week and a half during dialysis he has been having the symptoms. He states that normally when they put him on oxygen symptoms would subside. She states that today even with oxygen he was unable to catch his breath. Currently he denies any chest pain or shortness for breath. Past Medical History Dyslipidemia, hypertension, end-stage renal disease, diabetes mellitus Past Surgical History Dialysis access Family History Diabetes mellitus Smoke: No ALCOHOL: occassional Drugs: None Lives: with Family Review of Systems Review of Systems Review of systems are currently negative otherwise addressed in HPI. Allergies: Coded Allergies: NO KNOWN ALLERGIES (Unverified , 08/07/24) Medications Current Medications Medications Dose Ordered Sig/Wayne Route Start Time Stop Time Status Last Admin Dose Admin Metoprolol Tartrate 50 mg BID PO 10/22/24 22:00 Amlodipine Besylate 5 mg DAILY PO 10/23/24 10:00 Losartan Potassium 25 mg DAILY PO 10/23/24 10:00 UNV Atorvastatin Calcium 40 mg HS PO 10/22/24 22:00 Pantoprazole Sodium 40 mg DAILY@0600 PO 10/23/24 06:00 Calcium Acetate 667 mg TIDWMEALS PO 10/23/24 08:00 Apixaban 5 mg BID PO 10/22/24 22:00 UNV Sevelamer HCl 800 mg TIDWM PO 10/23/24 08:00 Clonidine HCl 0.1 mg Q6HP PRN PO 10/22/24 19:00 Diagnostic Test (Pha) 1 strip ACHS 10/22/24 22:00 Insulin Human Regular ACHS SC 10/22/24 22:00 Dextrose 50 ml UD PRN IV 10/22/24 19:00 Ondansetron HCl 4 mg Q4HP PRN IV 10/22/24 19:00 Acetaminophen 650 mg Q6HP PRN PO 10/22/24 19:00 Nitroglycerin 0.4 mg Q5MINP PRN SL 10/22/24 19:00 Morphine Sulfate 2 mg Q30M PRN IV 10/22/24 19:00 Exam Vital Signs Vital Signs Date Time Temp Pulse Resp B/P (MAP) Pulse Ox O2 Delivery O2 Flow Rate FiO2 10/22/24 20:00 97.9 85 16 146/94 (111) 97 97.9 10/22/24 17:46 Room Air* 0 21 Exam Gen: 54-year-old male in mild distress Skin: Warm, dry, normal color and texture, no rash. HEENT: Normocephalic atraumatic, mucous membranes moist and pink. Neck: Cervical and supraclavicular nodes normal without enlargement, trachea is midline, thyroid gland is normal without masses. Pulmonary: Clear to auscultation and percussion bilaterally. Cardiac: Regular rate and rhythm. No murmur Abdomen: Soft, nontender, nondistended, bowel sounds present all 4 quadrants, no guarding, no rigidity, no organomegaly. Extremities: No cyanosis, clubbing, no edema Neuro: Cranial nerves II through XII grossly intact, normal affect and speech, no focal motor deficits. Labs/Xrays ORDERING PHYSICIAN: FRANSISCA ANDERSON MD PROCEDURE(s): CXRP - CHEST PORTABLE REASON: cp ORDER NUMBER(s): [id number], ACCESSION NUMBER(s): [id number] CHEST RADIOGRAPH REASON FOR EXAM: Chest pain COMPARISON: XY CHEST PORTABLE on DOS: 04/18/23, XY CHEST PORTABLE on DOS: 04/16/23, XY CHEST PORTABLE on DOS: 04/11/23, XY CHEST PORTABLE on DOS: 04/10/23, XY CHEST PORTABLE on DOS: 03/29/23 TECHNIQUE: One view of the chest is provided FINDINGS: The cardiomediastinal silhouette is stable. There is an AICD. There is a right chest tunneled dialysis catheter with the tip projecting over the cavoatrial junction. There is small bilateral pleural effusion. There is no pneumothorax. There is mild bibasilar airspace disease. IMPRESSION: Mild bibasilar airspace disease. Small bilateral pleural effusions. ATED BY: CODY SCHUSTER MD Labs Test 10/22/24 19:45 10/22/24 17:26 10/22/24 16:55 Range/Units POC Glucose 222 H 70-106 mg/dl White Blood Count 7.5 4.4-10.8 10^3/uL Red Blood Count 3.99 L 4.5-5.90 10^6/uL Hemoglobin 12.6 L 13.5-17.5 g/dL Hematocrit 35.9 L 41.0-53.0 % Mean Corpuscular Volume 90.1 80.0-100.0 fL Mean Corpuscular Hemoglobin 31.7 28.0-32.0 pg Mean Corpuscular Hemoglobin Concent 35.2 32.0-36.0 g/dL Red Cell Distribution Width 13.9 11.8-14.3 % Platelet Count 186 140-450 10^3/uL Mean Platelet Volume 7.4 6.9-10.8 fL Neutrophils (%) (Auto) 37.0-80.0 % Lymphocytes (%) (Auto) 10.0-50.0 % Monocytes (%) (Auto) 0.0-12.0 % Eosinophils (%) (Auto) 0.0-7.0 % Basophils (%) (Auto) 0.0-2.0 % Neutrophils # (Auto) 1.6-8.6 10 ^3/uL Lymphocytes # (Auto) 0.4-5.4 10 ^3/uL Monocytes # (Auto) 0-1.3 10 ^3/uL Differential Total Cells Counted 100.0 100 Neutrophils % (Manual) 64 37.0-80.0 Band Neutrophils % (Manual) 1 Lymphocytes % (Manual) 14 10.0-50.0 Monocytes % (Manual) 6 0-12 Eosinophils % (Manual) 15 H 0-7 Basophils % (Manual) 0 0.0-2.0 Metamyelocytes % (manual) 0 Myelocytes % (Manual) 0 Promyelocytes % (Manual) 0 Blast Cells % (Manual) 0 Reactive Lymphocytes 0 Platelet Estimate Adequate Red Blood Cell Morphology Normal Sodium Level 142 136-145 mmol/L Potassium Level 4.5 3.5-5.1 mmol/L Chloride Level 107 98-107 mmol/L Carbon Dioxide Level 25 20-31 mmol/L Anion Gap 10 5-15 Blood Urea Nitrogen 33 H 9-23 mg/dL Creatinine 3.13 H 0.700-1.30 mg/dL Glomerular Filtration Rate Calc 23 >90 mL/min BUN/Creatinine Ratio 10.5 10.0-20.0 Serum Glucose 219 H 74-106 mg/dL Calcium Level 9.0 8.7-10.4 mg/dL Magnesium Level 2.2 1.6-2.6 mg/dL B-Type Natriuretic Peptide 434.33 0-100 pg/mL SEPSIS Sepsis Screen Date sepsis recognized/suspect: Oct 22, 2024 Time Sepsis recognized/suspect: 1745 Recent Procedure: No On Antibiotic Therapy: No Respiratory Rate >20: No Heart Rate >90: No Temp<36 C (96.8 F) or >38.3 C: No SBP <90 or MAP <65 mmHG: No New Acute Mental Status Change: No Is the patient on CPAP, BIPAP,: No Physician Orders Heplock Iv (10/22/24 16:38) Administrative Program Specialist (10/22/24 16:38) Blood Pressure (10/22/24 16:38) Pulse Oximetry (10/22/24 16:38) Troponin-I Hs (10/22/24 19:38) Chest Portable (10/22/24 16:41) Metoprolol Tartrate Tablet (Lopressor Ta (10/22/24 22:00) Amlodipine Tablet (Norvasc Tablet) (10/23/24 10:00) Losartan Tablet (Cozaar Tablet) (10/23/24 10:00) Atorvastatin (Lipitor) (10/22/24 22:00) Pantoprazole Tablet (Protonix Tablet) (10/23/24 06:00) Calcium Acetate Capsule (Phoslo Capsule) (10/23/24 08:00) Apixaban (Eliquis) (10/22/24 22:00) Sevelamer (Renagel) (10/23/24 08:00) Clonidine Hcl Tablet (Catapres Tablet) (10/22/24 19:00) Glucose Blood (Accu-Chek Comfort Curve T (10/22/24 22:00) Insulin R (Human) (Insulin R) (10/22/24 22:00) Dextrose 50% Syringe (10/22/24 19:00) Admit (10/22/24 18:56) Renal Standard(2gna,3gk,Lopho) (10/23/24 Breakfast) Ondansetron Hcl (Zofran) (10/22/24 19:00) Echo 2d Mode Cardiac Dop (10/22/24 18:56) Condition: Fair (10/22/24 18:56) Acetaminophen Tablet (Tylenol Tablet) (10/22/24 19:00) Bedrest With Bathroom Privileg (10/22/24 18:56) Nitroglycerin Sublingual (Ntrostat Subli (10/22/24 19:00) Morphine Sulfate Injection (10/22/24 19:00) Stat Ekg For Chest Pain (10/22/24 18:56) Notify Of Changes From Base (10/22/24 18:56) Laminator Preforms For 24 Hours (10/22/24 18:56) Emergency Dysrhythmia Protocol (10/22/24 18:56) Rhythm Strips Once Every Shift (10/22/24 18:56) Oxygen By Nasal Cannula (10/22/24 18:56) *Dr. Cabello [facility] (10/22/24 18:56) Vital Signs Date Time Temp Pulse Resp B/P (MAP) Pulse Ox O2 Delivery O2 Flow Rate FiO2 10/22/24 20:00 97.9 85 16 146/94 (111) 97 97.9 10/22/24 18:00 80 16 168/96 (120) 97 10/22/24 17:49 179/109 10/22/24 17:46 93 Room Air* 0 21 10/22/24 17:39 80 16 96 Room Air* 0 21 10/22/24 17:33 71 10/22/24 17:24 97.6 77 16 175/96 (122) 97 97.6 10/22/24 16:48 77 10/22/24 16:40 77 10/22/24 16:39 98.7 88 22 199/122 94 98.7 10/22/24 16:38 113 Laboratory Tests Test 10/22/24 16:55 White Blood Count 7.5 10^3/uL (4.4-10.8) Medications Medications Dose Ordered Sig/Wayne Route Start Time Stop Time Status Last Admin Dose Admin Hydralazine HCl 15 mg ONCE ONCE IV 10/22/24 17:45 10/22/24 17:54 DC 10/22/24 17:49 15 MG Assessment/Plan Assessment/Plan Assessment Chest pain Accelerated hypertension End-stage renal disease, Diabetes mellitus Questionable pneumonia Plan Admit the patient to telemetry to the hospitalist Echocardiogram pending Resume home medications Azithromycin Med nebs Resume home medications Continue treatment per orders. Plan discussed with: Patient My Orders Orders - BUNDYGERSONLUIGI AGACNP Procedure Category Date Status Time Metoprolol Tartrate PHA 10/22/24 In Process Tablet (Lopressor Ta 22:00 Amlodipine Tablet PHA 10/23/24 In Process (Norvasc Tablet) 10:00 Losartan Tablet PHA 10/23/24 Logged (Cozaar Tablet) 10:00 Atorvastatin (Lipitor) PHA 10/22/24 In Process 22:00 Pantoprazole Tablet PHA 10/23/24 In Process (Protonix Tablet) 06:00 Calcium Acetate PHA 10/23/24 In Process Capsule (Phoslo 08:00 Apixaban (Eliquis) PHA 10/22/24 Logged 22:00 Sevelamer (Renagel) PHA 10/23/24 In Process 08:00 Clonidine Hcl Tablet PHA 10/22/24 In Process (Catapres Tablet) 19:00 Glucose Blood PHA 10/22/24 In Process (Accu-Chek Comfort 22:00 Insulin R (Human) PHA 10/22/24 In Process (Insulin R) 22:00 Dextrose 50% Syringe PHA 10/22/24 In Process 19:00 Admit ADMIT 10/22/24 Transmitted 18:56 Renal DIET 10/23/24 Transmitted Standard(2gna,3gk,Lopho) Breakfast Ondansetron Hcl PHA 10/22/24 In Process (Zofran) 19:00 Echo 2d Mode Cardiac US 10/22/24 Logged DOP 18:56 Condition: Fair GILLIAN 10/22/24 In Process 18:56 Acetaminophen Tablet PHA 10/22/24 In Process (Tylenol Tablet) 19:00 Bedrest With Bathroom GILLIAN 10/22/24 In Process Privileg 18:56 Nitroglycerin PHA 10/22/24 In Process Sublingual (Ntrostat 19:00 Morphine Sulfate PHA 10/22/24 In Process Injection 19:00 Stat Ekg For Chest GILLIAN 10/22/24 In Process Pain 18:56 Notify Of Changes GILLIAN 10/22/24 In Process From Base 18:56 Laminator Preforms For [employer] [facility] 10/22/24 In Process 24 Hours 18:56 Emergency Dysrhythmia GILLIAN 10/22/24 In Process Protocol 18:56 Rhythm Strips Once GILLIAN 10/22/24 In Process Every Shift 18:56 Oxygen By Nasal RT 10/22/24 Transmitted Cannula 18:56 *Dr. Cabello [facility] CONS 10/22/24 Verified -[place] 18:56 Date of Service: Oct 22, 2024 Billing Provider: GERSON BUNDY Common Visit Codes: [id number] INP/OBS CARE (HIGH) GERSON BUNDY Oct 22, 2024 20:23
[2024-10-22] MEDS ORDERED: ALBUTEROL SULF 2.5 MG/0.5ML(0.5%) NEB SOLN NEB PRN (20:30)
[2024-10-22 20:40] VITALS: BP 146/94; PULSE 86; RESP 16; TEMP 97.9; O2SAT 97
[2024-10-22] MEDS: AZITHROMYCIN 500MG/ 250ML 250 ML IV ONE (20:43)
[2024-10-22] MEDS: ACCU-CHEK COMFORT CURVE STRIP VI SCH (22:02)
[2024-10-22] MEDS: APIXABAN 5 MG TAB PO SCH (22:09)
[2024-10-22] MEDS: ATORVASTATIN 20 MG TAB PO SCH (22:10)
[2024-10-22] MEDS: METOPROLOL TARTRATE 50 MG TAB PO SCH (22:10)
[2024-10-22] MEDS: InsuLIN REG 1unit/0.01ml Soln (100units/ml) SC SCH (22:11)
[2024-10-23 03:37] VITALS: BP 146/86; PULSE 72; RESP 16; TEMP 98.2; O2SAT 98
[2024-10-23 06:19] VITALS: O2SAT 99
[2024-10-23] MEDS: PANTOPRAZOLE 40 MG TAB PO SCH (06:36)
[2024-10-23 08:00] VITALS: PULSE 72
[2024-10-23 09:18] VITALS: BP 157/95; PULSE 71; RESP 16; TEMP 98.2; O2SAT 97
[2024-10-23] MEDS: SEVELAMER 800 MG TAB PO SCH (09:40)
[2024-10-23] MEDS: CALCIUM ACETATE 667 MG CAP PO SCH (09:40)
[2024-10-23] MEDS: LOSARTAN POTASSIUM 25 MG TAB PO SCH (09:41)
[2024-10-23] MEDS: METOPROLOL SUCCINATE XL 50 MG TAB PO ONE (09:42)
[2024-10-23] MEDS: FUROSEMIDE 40 MG/4 ML VIAL IV ONE (09:42)
[2024-10-23 11:06] LABS: COVID19 ANTIGEN SOFIA FIA NEGATIVE (NEGATIVE)
--- NOTE | 2024-10-23 11:17 | DVHPNRES ---
Progress Note Date Seen: Oct 23, 2024 Resident Creating Document: ABHILASH MONTANEZ RESIDENT Medical Necessity Reason Pt with a Central, PICC or Fol: Yes Subjective Review of Systems A 54 years old male with a past medical history of cardiomyopathy, HFrEF, EF 20%, CAD, hypertension, hyperlipidemia, ESRD on HD Saturday//Saturday at [facility], valvular heart disease, on ICD, on Eliquis came with a complaint of chest pain. As per patient while he was having dialysis yesterday then after 45 minutes during dialysis he started having chest pain, pressure- like, central, no radiation, associated with shortness of breaths. Patient reported similar symptom is happening for last 1 and half weeks during dialysis. Patient denied any fever, cough, diarrhea, dysuria, acute dysarthria or change in vision. On Arrival blood pressure was 199/122, pulse 90> 99, EKG no acute ST-T wave changes. Lab revealed serum creatinine 3.13, GFR 23, blood sugar 222, BNP 434, troponin I WNL,, Eosinophil 15. Chest x-ray-Mild bibasilar airspace disease. From review of the previous documentation patient had an Echo 2D done in [facility] in April, EF was 20%. UDS negative, influenza and COVID test negative. 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 Patient denied any acute chest pain or shortness of breaths, patient in room air, lung sounds clear, trace leg edema. Pending echo 2D and cardiology consult. Pending nephrology consult. Hemoglobin A1c 6.0. Objective vital signs Vital Sign Date Time Temp Pulse Resp B/P (MAP) Pulse Ox O2 Delivery O2 Flow Rate FiO2 10/23/24 09:42 157/95 10/23/24 09:42 71 10/23/24 09:18 98.2 16 97 98.2 10/23/24 06:19 Room Air* 0 21 Total Intake and Output 10/22/24 10/22/24 10/23/24 15:00 23:00 07:00 Intake Total 250 ml Output Total 0 ml Balance 250 ml medications Current Medications Medications Dose Ordered Sig/Wayne Route Start Time Stop Time Status Last Admin Dose Admin Amlodipine Besylate 5 mg DAILY PO 10/23/24 10:00 10/23/24 09:41 5 MG Losartan Potassium 25 mg DAILY PO 10/23/24 10:00 10/23/24 09:41 25 MG Atorvastatin Calcium 40 mg HS PO 10/22/24 22:00 10/22/24 22:10 40 MG Pantoprazole Sodium 40 mg DAILY@0600 PO 10/23/24 06:00 10/23/24 06:36 40 MG Calcium Acetate 667 mg TIDWMEALS PO 10/23/24 08:00 10/23/24 09:40 667 MG Apixaban 5 mg BID PO 10/22/24 22:00 10/23/24 09:41 5 MG Sevelamer HCl 800 mg TIDWM PO 10/23/24 08:00 10/23/24 09:40 800 MG Clonidine HCl 0.1 mg Q6HP PRN PO 10/22/24 19:00 Diagnostic Test (Pha) 1 strip ACHS 10/22/24 22:00 10/23/24 06:37 1 STRIP Insulin Human Regular ACHS SC 10/22/24 22:00 10/22/24 22:11 6 UNITS Dextrose 50 ml UD PRN IV 10/22/24 19:00 Ondansetron HCl 4 mg Q4HP PRN IV 10/22/24 19:00 Acetaminophen 650 mg Q6HP PRN PO 10/22/24 19:00 Nitroglycerin 0.4 mg Q5MINP PRN SL 10/22/24 19:00 Morphine Sulfate 2 mg Q30M PRN IV 10/22/24 19:00 Azithromycin 250 ml @ 125 mls/hr DAILY@2000 IV 10/23/24 20:00 Albuterol 2.5 mg Q6HPRN PRN NEB 10/22/24 20:30 Metoprolol Succinate 50 mg DAILY PO 10/24/24 10:00 Furosemide 40 mg BIDD IV 10/23/24 18:00 Examination General examination- awake, alert, oriented, tunneled catheter placed on the right side of the chest HEENT- PEERLA, no acute nasal discharge Cardiovascular- S1-S2 audible, rate and rhythm regular, no murmur Respiratory- CTAB, no wheeze or rhonchi Gastrointestinal-nontender, bowel sound+. Nondistended Musculoskeletal-no acute joint swelling or tenderness or redness Lower extremity- trace bilateral leg edema Neurological- cranial nerves intact, no acute dysarthria or dysphagia Psychiatry- denies depression or SI or HI Skin- no acute rash or purpura laboratory and microbiology Laboratory Tests 10/22/24 16:55 Test 10/22/24 16:55 Range/Units Serum Glucose 219 H 74-106 mg/dL Labs and/or images reviewed: Labs reviewed by me, Image(s) reviewed by me Problem List/Assessment/Plan Problem List/Assessment/Plan Assessment and plan #Acute chest pain, rule out acute coronary syndrome, rule out pericarditis, pneumonia, pneumothorax # Acute pulmonary edema likely due to acute on chronic HFrEF/ESRD # Acute hypoxic respiratory failure likely due to acute on chronic HFrEF/acute pulmonary edema due to ESRD # Hypertensive urgency # Bilateral pleural effusion, likely due to ESRD/HFrEF # nonischemic Cardiomyopathy # HFrEF, EF 20%, NYHA class III -BNP 434, troponin I WNL -EKG no acute ST elevation -chest x-ray-Mild bibasilar airspace disease. Small bilateral pleural effusions. -continue IV Lasix 40 mg b.i.d. -metoprolol succinate 50 mg p.o. daily -continue losartan 5 mg p.o. daily -continue Eliquis 5 mg p.o. b.i.d. Continue amlodipine 5 mg p.o. daily -continue nebulization as prescribed -monitor weight daily -strict I&O -seen by cardiology- recommended-Hold ARNI, MRA, SGLT2i given poor renal function -pending echo 2D # ESRD on hemodialysis Saturday//Saturday at [facility] -pending nephrology consult -daily weight monitoring -strict I&O -continue sevelamer as ordered # CAD # hyperlipidemia -continue Eliquis 5 mg p.o. b.i.d. -continue atorvastatin 40 mg p.o. daily -seen by cardiology- recommended-Hold ARNI, MRA, SGLT2i given poor renal function -pending echo 2D # diabetes mellitus type 2 with the hyperglycemia -continue insulin sliding scale as prescribed -hemoglobin A1c 8.7 PCP-Dr. Yang Cardiology Dr. Park at [facility] Goals of care, Code status ; discussed with the patient for 20 minutes PUD prophylaxis: Pantoprazole DVT prophylaxis: Eliquis Plan discussed with Dr. Weiner , nursing staff, Plan discussed with: Patient, Other (RN) My Orders My Orders Orders - ABHILASH MONTANEZ Procedure Category Date Status Time Complete Blood Count LAB 10/23/24 Logged 08:50 Comprehensive LAB 10/23/24 Logged Metabolic Panel 08:50 Magnesium LAB 10/23/24 Logged 08:50 Phosphorus LAB 10/23/24 Logged 08:50 Hemoglobin A1c LAB 10/23/24 Logged 08:50 Vitamin B12 LAB 10/23/24 Logged 08:50 Vitamin D, 25-Hydroxy LAB 10/23/24 Logged 08:50 Folate (Folic Acid) LAB 10/23/24 Logged 08:50 Furosemide Injection PHA 10/23/24 In Process (Lasix Injection) 18:00 Metoprolol Xl PHA 10/24/24 In Process Succinate (Toprol Xl) 10:00 Drug Screen LAB 10/23/24 Logged 09:47 * Cardiology Consult CONS 10/23/24 Transmitted 11:04 Addendum Addendum Addendum I was physically present for the raymundo portions of the service provided to patient by THE RESIDENT. I have reviewed the documentation, discussed the case with resident and agree with the resident's documentation except as noted. Also the patient's clinical case was discussed with the patient's nurse. This medical document was created using an electronic medical record system with computerized dictation system. Although this document has been carefully reviewed, there might still be some phonetic and typographical errors. These areas are purely typographical due to imperfections of the software programs, and do not reflect any compromise in the patient's medical care. Late signature. Date of Service: Oct 23, 2024 Billing Provider: RICHY WEINER MD Common Visit Codes: [id number] INP/OBS CARE(HIGH) Secondary Visit Codes: [id number] CARE PLAN 30 MINUTES (20 minutes) ABHILASH MONTANEZ Oct 23, 2024 11:17 RICHY WEINER MD Oct 24, 2024 09:30
[2024-10-23] MEDS ORDERED: PANTOPRAZOLE 40 MG TAB PO ONE (11:30)
[2024-10-23 11:31] LABS: Hematocrit 33.4 % (41.0-53.0); Hemoglobin 11.5 g/dL (13.5-17.5); Mean Corpuscular Hemoglobin 31.1 pg (28.0-32.0); Mean Corpuscular Volume 90.1 fL (80.0-100.0); Nucleated Red Blood Cells % 0.0 %
[2024-10-23 11:48] LABS: Alanine Aminotransferase 20 U/L (7-40); Albumin 3.3 g/dL (3.2-4.8); Alkaline Phosphatase 153 U/L (46-116); Anion Gap 7 (5-15); BUN/Creatinine Ratio 10.1 (10.0-20.0); Blood Urea Nitrogen 37 mg/dL (9-23); Calcium 8.3 mg/dL (8.7-10.4); Carbon Dioxide 25 mmol/L (20-31); Chloride 108 mmol/L (98-107); Glucose 221 mg/dL (74-106); Magnesium 2.1 mg/dL (1.6-2.6); Potassium 4.6 mmol/L (3.5-5.1); Sodium 140 mmol/L (136-145)
[2024-10-23 11:49] LABS: Bilirubin, Total 0.4 mg/dL (0.2-1.0); Total Protein 5.3 g/dL (5.7-8.2)
[2024-10-23] MEDS: ERGOCALCIFEROL 50,000 UNIT(1.25MG) CAP PO SCH (12:34)
[2024-10-23 13:15] VITALS: BP 153/92; PULSE 82; RESP 17; TEMP 97.8; O2SAT 97
--- NOTE | 2024-10-23 15:04 | DVHINCON2 ---
Date Seen: Oct 23, 2024 Referring Physician MD Sergio Reason for Consultation Chest pain and shortness of breath History of Present Illness This is a 54-year-old male patient who presents to emergency room with chief complaint of generalized cramping and shortness of breath. The patient reports that he was undergoing his dialysis session when suddenly he began to feel his bilateral hands cramping followed by generalized body tingling and started experiencing severe shortness of breath. Dialysis had to be stopped and the patient was brought to the emergency room for further evaluation. Cardiology has been consulted at this time for shortness of breath. Previous provider documented that the patient was experiencing chest pain. Clarified symptoms with the patient, the patient denies any chest pain. Initial twelve lead electrocardiogram reveals normal sinus rhythm without any significant ST segment changes. Initial troponin level of 19ng/L with flat trend thereafter. Significant past medical history includes congestive heart failure, nonischemic cardiomyopathy, presence of AICD ([employer]), hypertension, dyslipidemia, end-stage renal disease on hemodialysis, type 2 diabetes mellitus, and anxiety. Of note, the patient is noted to take Eliquis therapy at home. Patient denies any history of cardiac arrhythmias and is unsure as to why he is on anticoagulation. 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 He also states he had a coronary angiogram less than one year ago in which no catheter based intervention was deemed necessary. Past Medical History Past medical history reviewed. No other significant than mentioned above. Past Surgical History AICD implantation on May 21, 2024 Family History: Diabetes mellitus G8 MOTHER Family History Family history reviewed. Social History Denies the use of tobacco, alcohol or illicit drugs. Allergies: Coded Allergies: NO KNOWN ALLERGIES (Unverified , 08/07/24) Home Meds Active Scripts Hydralazine Hcl (Hydralazine Hcl) 50 Mg Tab, 1 TAB PO BID, #180 TAB 3 Refills Prov:GIRMA MABRY MD 08/08/24 Sodium Bicarbonate (Sodium Bicarbonate) 650 Mg Tab, 650 MG PO TID for 90 Days, #270 TAB Prov:GIRMA MABRY MD 08/08/24 Nitroglycerin (NTROSTAT SUBLINGUAL) 0.4 Mg Sl, 0.4 MG SL Q5MINP PRN for 25 Days, #25 TAB Prov:GIRMA MABRY MD 08/08/24 Insulin Lispro (Human) (Humalog) 100 Unit/Ml Inj, 5 UNITS SC AC for 90 Days, INJ Prov:GIRMA MABRY MD 08/08/24 Insulin Glargine (Lantus) 100 Unit/Ml Inj, 15 UNITS SC QAM for 90 Days, #3 INJ Prov:GIRMA MABRY MD 08/08/24 Home Meds Home medications reviewed. Current Medications Current Medications Medications (Trade) Dose Ordered Sig/Wayne Route PRN Reason Start Time Stop Time Status Last Admin Metoprolol Tartrate (Lopressor Tablet) 50 mg BID PO 10/22/24 22:00 10/23/24 08:57 DC 10/22/24 22:10 Amlodipine Besylate (Norvasc Tablet) 5 mg DAILY PO 10/23/24 10:00 10/23/24 09:41 Losartan Potassium (Cozaar Tablet) 25 mg DAILY PO 10/23/24 10:00 10/23/24 09:41 Atorvastatin Calcium (Lipitor) 40 mg HS PO 10/22/24 22:00 10/22/24 22:10 Pantoprazole Sodium (Protonix Tablet) 40 mg DAILY@0600 PO 10/23/24 06:00 10/23/24 11:46 DC 10/23/24 06:36 Calcium Acetate (Phoslo Capsule) 667 mg TIDWMEALS PO 10/23/24 08:00 10/23/24 12:34 Apixaban (Eliquis) 5 mg BID PO 10/22/24 22:00 10/23/24 09:41 Sevelamer HCl (Renagel) 800 mg TIDWM PO 10/23/24 08:00 10/23/24 12:34 Clonidine HCl (Catapres Tablet) 0.1 mg Q6HP PRN PO SBP>160 10/22/24 19:00 Diagnostic Test (Pha) (Accu-Chek Comfort Curve T) 1 strip ACHS 10/22/24 22:00 10/23/24 11:30 Insulin Human Regular (InsuLIN R) ACHS SC 10/22/24 22:00 10/23/24 12:37 Dextrose 50 ml UD PRN IV Blood Sugar LESS THAN 60 10/22/24 19:00 Ondansetron HCl (Zofran) 4 mg Q4HP PRN IV NAUSEA / VOMITING 10/22/24 19:00 Acetaminophen (Tylenol Tablet) 650 mg Q6HP PRN PO PAIN SCALE 1-3 OR TEMP>100.4 10/22/24 19:00 Nitroglycerin (Ntrostat Sublingual) 0.4 mg Q5MINP PRN SL FOR CHEST PAIN 10/22/24 19:00 Morphine Sulfate 2 mg Q30M PRN IV FOR CHEST PAIN 10/22/24 19:00 Azithromycin 250 ml @ 125 mls/hr DAILY@2000 IV 10/23/24 20:00 Cancel Albuterol (Ventolin Medneb) 2.5 mg Q6HPRN PRN NEB SHORTNESS OF BREATH 10/22/24 20:30 Metoprolol Succinate (Toprol Xl) 50 mg DAILY PO 10/24/24 10:00 Furosemide (Lasix Injection) 40 mg BIDD IV 10/23/24 18:00 Pantoprazole Sodium (Protonix Tablet) 40 mg DAILY@0600 PO 10/24/24 06:00 Ergocalciferol (Vitamin D 50,000 Unit) 50,000 unit Q7D PO 10/23/24 11:45 10/23/24 12:34 Review of Systems Constitutional: No symptom reported Ears, Nose, & Throat: No symptom reported Eyes: No symptom reported Neurological: No symptoms reported Pulmonary/Respiratory: Shortness of breath Cardiovascular: No symptom reported Gastrointestinal: No symptom reported Genitourinary: No symptom reported Musculoskeletal: No symptom reported Skin: No symptom reported Psychiatric: No symptom reported Endocrine: No symptom reported Hematologic/Lymphatic: No symptom reported Vital Signs Vital Signs Date Time Temp Pulse Resp B/P (MAP) Pulse Ox O2 Delivery O2 Flow Rate FiO2 10/23/24 13:15 97.8 82 17 153/92 (112) 97 97.8 10/23/24 08:08 Room Air* 0 21 Physical Exam General Appearance: Cooperative. Well-developed. Well-nourished. No acute distress. Pulmonary/Respiratory: Clear, bilateral breaths sounds. Cardiovascular/Chest: Regular rate and rhythm. Peripheral Pulses: 2+ Radial (R). 2+ Radial (L). 2+ Pedal (R). 2+ Pedal (L) Abdominal Exam: Normal bowel sounds. Ankle Exam: Negative ankle edema Lower extremities: Negative lower extremity edema Neuro/Mental Status: A/OX4, coherent. Thoughts/Psych: Normal thought pattern. Appropriate mood and affect. Good judgment and insight. Appearance: No acute distress. Skin Exam: Normal inspection. Normal color. Warm and dry. Labs/Diagnostic Data Labs Test 10/23/24 11:46 10/23/24 11:13 10/23/24 09:30 10/22/24 19:45 Range/Units POC Glucose 242 H 70-106 mg/dl White Blood Count 6.7 4.4-10.8 10^3/uL Red Blood Count 3.70 L 4.5-5.90 10^6/uL Hemoglobin 11.5 L 13.5-17.5 g/dL Hematocrit 33.4 L 41.0-53.0 % Mean Corpuscular Volume 90.1 80.0-100.0 fL Mean Corpuscular Hemoglobin 31.1 28.0-32.0 pg Mean Corpuscular Hemoglobin Concent 34.5 32.0-36.0 g/dL Red Cell Distribution Width 13.5 11.8-14.3 % Platelet Count 179 140-450 10^3/uL Mean Platelet Volume 7.2 6.9-10.8 fL Neutrophils (%) (Auto) 58.0 37.0-80.0 % Lymphocytes (%) (Auto) 18.4 10.0-50.0 % Monocytes (%) (Auto) 5.7 0.0-12.0 % Eosinophils (%) (Auto) 17.0 H 0.0-7.0 % Basophils (%) (Auto) 0.9 0.0-2.0 % Neutrophils # (Auto) 3.9 1.6-8.6 10 ^3/uL Lymphocytes # (Auto) 1.2 0.4-5.4 10 ^3/uL Monocytes # (Auto) 0.4 0-1.3 10 ^3/uL Eosinophils # (Auto) 1.1 H 0-0.8 10 ^3/uL Basophils # (Auto) 0.1 0-0.2 10 ^3/uL Nucleated Red Blood Cells 0.0 % Sodium Level 140 136-145 mmol/L Potassium Level 4.6 3.5-5.1 mmol/L Chloride Level 108 H 98-107 mmol/L Carbon Dioxide Level 25 20-31 mmol/L Anion Gap 7 5-15 Blood Urea Nitrogen 37 H 9-23 mg/dL Creatinine 3.67 H 0.700-1.30 mg/dL Glomerular Filtration Rate Calc 19 >90 mL/min BUN/Creatinine Ratio 10.1 10.0-20.0 Serum Glucose 221 H 74-106 mg/dL Hemoglobin A1c 8.7 H <5.7 % A1C Calcium Level 8.3 L 8.7-10.4 mg/dL Phosphorus Level 4.1 2.4-5.1 mg/dL Magnesium Level 2.1 1.6-2.6 mg/dL Total Bilirubin 0.4 0.2-1.0 mg/dL Aspartate Amino Transferase (AST) 20 13-40 U/L Alanine Aminotransferase (ALT) 20 7-40 U/L Alkaline Phosphatase 153 H 46-116 U/L Total Protein 5.3 L 5.7-8.2 g/dL Albumin 3.3 3.2-4.8 g/dL Vitamin D 25-Hydroxy 29.0 L 30.0-100 ng/mL Influenza Type A Antigen Negative Negative Influenza Type B Antigen Negative Negative SARS-CoV-2 Antigen (Rapid) Negative NEGATIVE Troponin I High Sensitivity 22 </=54 ng/L Test 10/22/24 16:55 Range/Units Differential Total Cells Counted 100.0 100 Neutrophils % (Manual) 64 37.0-80.0 Band Neutrophils % (Manual) 1 Lymphocytes % (Manual) 14 10.0-50.0 Monocytes % (Manual) 6 0-12 Eosinophils % (Manual) 15 H 0-7 Basophils % (Manual) 0 0.0-2.0 Metamyelocytes % (manual) 0 Myelocytes % (Manual) 0 Promyelocytes % (Manual) 0 Blast Cells % (Manual) 0 Reactive Lymphocytes 0 Platelet Estimate Adequate Red Blood Cell Morphology Normal B-Type Natriuretic Peptide 434.33 0-100 pg/mL Assessment Chronic HFrEF, NYHA class III Hypertensive urgency History of nonischemic cardiomyopathy Presence of AICD ([employer]) Dyslipidemia End-stage renal disease on hemodialysis Type 2 diabetes mellitus Anxiety Plan/Recommendation We will continue with the following plan/recommendations (Dr. Aldana) * Transthoracic echocardiogram to evaluate cardiac function * Initiate guideline directed medical therapy for CHF as renal function permits * Hold ARNI, MRA, SGLT2i given poor renal function * Aggressive BP control as tolerated * Lipid-lowering agent * Device interrogation * Close Cardiac surveillance The patient is currently following up with a highway construction inspector at [facility], [place]. He states he underwent a coronary angiogram less than one year ago in which there was no catheter based intervention needed at that time. Continue with medical management. Thank you for allowing us to care for this patient. Please call with any questions or concerns. Critical care time spent: 44 minutes This medical document was created using an electronic medical record system with voice recognition software and computerized dictation system. Although this document has been carefully reviewed, there might still be some phonetic and typographical errors. Occasional wrong-word or ``sound-alike substitutions may have occurred due to the inherent limitations of voice recognition software. These areas are purely typographical due to imperfections of the software programs and do not reflect any compromise in the patient's medical care. Please read the chart carefully and recognize, using context, where these substitutions have occurred. Plan discussed with: Patient NYHA Physical activity limitations: Class3(Marked) ordinary (activity causes symtoms) Date of Service: Oct 23, 2024 Billing Provider: JAMEY KAUR Cardiology Common Codes: 50962-[id number] INP/OBS CARE (High) Cardiology Consultation Codes: [id number] CONSULT <45MIN JAMEY KAUR Oct 23, 2024 15:04
--- NOTE | 2024-10-23 15:40 | DVHINCON2 ---
Date of service: Oct 23, 2024 Referring Physician DONI Mackenzie Reason for Consultation ESRD on HD History of Present Illness 54 y/o male with a hx of ESRD on HD //Sat, type 2 DM, HTN, CHF, hyperlipidemia, anxiety presented with chief complaint of CP, dyspnea with dialysis. Pt reports he has been on HD x 5 months and during the last week and a half he has been experiencing CP and dyspnea during HD. Reports d/t symptoms has not been tolerating full HD treatment plan. Upon admission creat 3.13, repeat on 10/23 BUN 37, creat 3.67. Pt denies current cardiopulmonary issues including CP and dyspnea. Past Medical History ESRD on HD T//Sat, type 2 DM, HTN, CHF, anxiety, hyperlipidemia Past Surgical History AICD Allergies: Coded Allergies: NO KNOWN ALLERGIES (Unverified , 08/07/24) Home Meds Active Scripts Hydralazine Hcl (Hydralazine Hcl) 50 Mg Tab, 1 TAB PO BID, #180 TAB 3 Refills Prov:GIRMA MABRY MD 08/08/24 Sodium Bicarbonate (Sodium Bicarbonate) 650 Mg Tab, 650 MG PO TID for 90 Days, #270 TAB Prov:GIRMA MABRY MD 08/08/24 Nitroglycerin (NTROSTAT SUBLINGUAL) 0.4 Mg Sl, 0.4 MG SL Q5MINP PRN for 25 Days, #25 TAB Prov:GIRMA MABRY MD 08/08/24 Insulin Lispro (Human) (Humalog) 100 Unit/Ml Inj, 5 UNITS SC AC for 90 Days, INJ Prov:GIRMA MABRY MD 08/08/24 Insulin Glargine (Lantus) 100 Unit/Ml Inj, 15 UNITS SC QAM for 90 Days, #3 INJ Prov:GIRMA MABRY MD 08/08/24 Current Medications Current Medications Medications (Trade) Dose Ordered Sig/Wayne Route PRN Reason Start Time Stop Time Status Last Admin Metoprolol Tartrate (Lopressor Tablet) 50 mg BID PO 10/22/24 22:00 10/23/24 08:57 DC 10/22/24 22:10 Amlodipine Besylate (Norvasc Tablet) 5 mg DAILY PO 10/23/24 10:00 10/23/24 15:03 DC 10/23/24 09:41 Losartan Potassium (Cozaar Tablet) 25 mg DAILY PO 10/23/24 10:00 10/23/24 15:03 DC 10/23/24 09:41 Atorvastatin Calcium (Lipitor) 40 mg HS PO 10/22/24 22:00 10/23/24 20:42 DC 10/22/24 22:10 Pantoprazole Sodium (Protonix Tablet) 40 mg DAILY@0600 PO 10/23/24 06:00 10/23/24 11:46 DC 10/23/24 06:36 Calcium Acetate (Phoslo Capsule) 667 mg TIDWMEALS PO 10/23/24 08:00 10/23/24 20:42 DC 10/23/24 16:41 Apixaban (Eliquis) 5 mg BID PO 10/22/24 22:00 10/23/24 20:42 DC 10/23/24 09:41 Sevelamer HCl (Renagel) 800 mg TIDWM PO 10/23/24 08:00 10/23/24 20:42 DC 10/23/24 16:41 Diagnostic Test (Pha) (Accu-Chek Comfort Curve T) 1 strip ACHS 10/22/24 22:00 10/23/24 20:42 DC 10/23/24 16:45 Insulin Human Regular (InsuLIN R) ACHS SC 10/22/24 22:00 10/23/24 20:42 DC 10/23/24 16:46 Azithromycin 250 ml @ 125 mls/hr DAILY@2000 IV 10/23/24 20:00 Cancel Metoprolol Succinate (Toprol Xl) 50 mg DAILY PO 10/24/24 10:00 10/23/24 20:42 DC Furosemide (Lasix Injection) 40 mg BIDD IV 10/23/24 18:00 10/23/24 20:42 DC 10/23/24 16:42 Pantoprazole Sodium (Protonix Tablet) 40 mg DAILY@0600 PO 10/24/24 06:00 10/23/24 20:42 DC Ergocalciferol (Vitamin D 50,000 Unit) 50,000 unit Q7D PO 10/23/24 11:45 10/23/24 20:42 DC 10/23/24 12:34 Hydralazine HCl (Apresoline Tablet) 25 mg Q12HR PO 10/23/24 22:00 10/23/24 20:42 DC Isosorbide Mononitrate (Imdur Er Tablet) 30 mg DAILY PO 10/24/24 10:00 10/23/24 20:42 DC Family History: Diabetes mellitus G8 MOTHER Review of Systems 10 systems reviewed and negative except as per HPI H&P Exam Vital Signs/I&O Vital Sign Date Time Temp Pulse Resp B/P (MAP) Pulse Ox O2 Delivery O2 Flow Rate FiO2 10/23/24 16:49 98.2 70 17 138/86 (103) 96 98.2 10/23/24 08:08 Room Air* 0 21 Intake and Output 10/22/24 10/23/24 19:00 07:00 Intake Total 250 ml Output Total 0 ml Balance 250 ml Intake Oral 0 ml IV Total 250 ml Output Urine Total 0 ml Physical Exam Gen: Appears stated age, NAD HEENT: PERRLA, mucous membranes moist Lungs: Bilateral air entry, no rales Heart: RRR, normal S1 and S2 Abd:soft, normoactive bowel sounds, nontender, nondistended Ext: No edema Neuro: A&O x4 Labs/Diagnostic Data Labs/Diagnostic Data Laboratory Tests Test 10/23/24 16:30 10/23/24 16:27 10/23/24 11:46 10/23/24 11:13 Range/Units Urine Color Colorless Yellow Urine Clarity Clear Clear Urine pH 7.0 5.0-9.0 Urine Specific [place] 1.010 1.001-1.035 Urine Protein 2+ H Negative Urine Ketones Negative Negative Urine Blood 1+ H Negative /uL Urine Nitrite Negative Negative Urine Bilirubin Negative Negative Urine Urobilinogen Normal Negative mg/dL Urine Leukocyte Esterase Negative Negative /uL Urine RBC 7 0 - 3 /hpf Urine Microscopic WBC 1 0-3 /HPF Urine Squamous Epithelial Cells None seen <5 /hpf Urine Bacteria None seen None Seen /hpf Urine Glucose 4+ H Normal mg/dL Urine Opiates Screen Neg NEGATIVE Urine Fentanyl Screen Neg NEGATIVE Urine Barbiturates Screen Neg NEGATIVE Urine Phencyclidine Screen Neg NEGATIVE Urine Amphetamines Screen Neg NEGATIVE Urine Benzodiazepines Screen Neg NEGATIVE Urine Cocaine Screen Neg NEGATIVE Urine Cannabinoids Screen Neg NEGATIVE POC Glucose 203 H 242 H 70-106 mg/dl White Blood Count 6.7 4.4-10.8 10^3/uL Red Blood Count 3.70 L 4.5-5.90 10^6/uL Hemoglobin 11.5 L 13.5-17.5 g/dL Hematocrit 33.4 L 41.0-53.0 % Mean Corpuscular Volume 90.1 80.0-100.0 fL Mean Corpuscular Hemoglobin 31.1 28.0-32.0 pg Mean Corpuscular Hemoglobin Concent 34.5 32.0-36.0 g/dL Red Cell Distribution Width 13.5 11.8-14.3 % Platelet Count 179 140-450 10^3/uL Mean Platelet Volume 7.2 6.9-10.8 fL Neutrophils (%) (Auto) 58.0 37.0-80.0 % Lymphocytes (%) (Auto) 18.4 10.0-50.0 % Monocytes (%) (Auto) 5.7 0.0-12.0 % Eosinophils (%) (Auto) 17.0 H 0.0-7.0 % Basophils (%) (Auto) 0.9 0.0-2.0 % Neutrophils # (Auto) 3.9 1.6-8.6 10 ^3/uL Lymphocytes # (Auto) 1.2 0.4-5.4 10 ^3/uL Monocytes # (Auto) 0.4 0-1.3 10 ^3/uL Eosinophils # (Auto) 1.1 H 0-0.8 10 ^3/uL Basophils # (Auto) 0.1 0-0.2 10 ^3/uL Nucleated Red Blood Cells 0.0 % Sodium Level 140 136-145 mmol/L Potassium Level 4.6 3.5-5.1 mmol/L Chloride Level 108 H 98-107 mmol/L Carbon Dioxide Level 25 20-31 mmol/L Anion Gap 7 5-15 Blood Urea Nitrogen 37 H 9-23 mg/dL Creatinine 3.67 H 0.700-1.30 mg/dL Glomerular Filtration Rate Calc 19 >90 mL/min BUN/Creatinine Ratio 10.1 10.0-20.0 Serum Glucose 221 H 74-106 mg/dL Hemoglobin A1c 8.7 H <5.7 % A1C Calcium Level 8.3 L 8.7-10.4 mg/dL Phosphorus Level 4.1 2.4-5.1 mg/dL Magnesium Level 2.1 1.6-2.6 mg/dL Total Bilirubin 0.4 0.2-1.0 mg/dL Aspartate Amino Transferase (AST) 20 13-40 U/L Alanine Aminotransferase (ALT) 20 7-40 U/L Alkaline Phosphatase 153 H 46-116 U/L Total Protein 5.3 L 5.7-8.2 g/dL Albumin 3.3 3.2-4.8 g/dL Vitamin D 25-Hydroxy 29.0 L 30.0-100 ng/mL Test 10/23/24 09:30 10/23/24 06:36 10/22/24 22:03 10/22/24 19:45 Range/Units Influenza Type A Antigen Negative Negative Influenza Type B Antigen Negative Negative SARS-CoV-2 Antigen (Rapid) Negative NEGATIVE POC Glucose 116 H 252 H 70-106 mg/dl Troponin I High Sensitivity 22 </=54 ng/L Test 10/22/24 17:53 10/22/24 17:26 10/22/24 16:55 Range/Units Troponin I High Sensitivity 18 19 </=54 ng/L POC Glucose 222 H 70-106 mg/dl White Blood Count 7.5 4.4-10.8 10^3/uL Red Blood Count 3.99 L 4.5-5.90 10^6/uL Hemoglobin 12.6 L 13.5-17.5 g/dL Hematocrit 35.9 L 41.0-53.0 % Mean Corpuscular Volume 90.1 80.0-100.0 fL Mean Corpuscular Hemoglobin 31.7 28.0-32.0 pg Mean Corpuscular Hemoglobin Concent 35.2 32.0-36.0 g/dL Red Cell Distribution Width 13.9 11.8-14.3 % Platelet Count 186 140-450 10^3/uL Mean Platelet Volume 7.4 6.9-10.8 fL Neutrophils (%) (Auto) 37.0-80.0 % Lymphocytes (%) (Auto) 10.0-50.0 % Monocytes (%) (Auto) 0.0-12.0 % Eosinophils (%) (Auto) 0.0-7.0 % Basophils (%) (Auto) 0.0-2.0 % Neutrophils # (Auto) 1.6-8.6 10 ^3/uL Lymphocytes # (Auto) 0.4-5.4 10 ^3/uL Monocytes # (Auto) 0-1.3 10 ^3/uL Differential Total Cells Counted 100.0 100 Neutrophils % (Manual) 64 37.0-80.0 Band Neutrophils % (Manual) 1 Lymphocytes % (Manual) 14 10.0-50.0 Monocytes % (Manual) 6 0-12 Eosinophils % (Manual) 15 H 0-7 Basophils % (Manual) 0 0.0-2.0 Metamyelocytes % (manual) 0 Myelocytes % (Manual) 0 Promyelocytes % (Manual) 0 Blast Cells % (Manual) 0 Reactive Lymphocytes 0 Platelet Estimate Adequate Red Blood Cell Morphology Normal Sodium Level 142 136-145 mmol/L Potassium Level 4.5 3.5-5.1 mmol/L Chloride Level 107 98-107 mmol/L Carbon Dioxide Level 25 20-31 mmol/L Anion Gap 10 5-15 Blood Urea Nitrogen 33 H 9-23 mg/dL Creatinine 3.13 H 0.700-1.30 mg/dL Glomerular Filtration Rate Calc 23 >90 mL/min BUN/Creatinine Ratio 10.5 10.0-20.0 Serum Glucose 219 H 74-106 mg/dL Calcium Level 9.0 8.7-10.4 mg/dL Magnesium Level 2.2 1.6-2.6 mg/dL B-Type Natriuretic Peptide 434.33 0-100 pg/mL Plan/Recommendation IMP 1. ESRD on HD 2. CHF 3. Hypertensive urgency 4. Hx of HTN 5. Hx of type 2 DM REC -Will evaluate daily for [employer]CHNICIAN -Serial chemistry panels -Cardiology on board -Blood pressure control -We will continue to follow Case discussed with Dr. Angel Cabello Plan discussed with: Patient KELLI HURTADO MATH COACH Oct 23, 2024 15:40
[2024-10-23] MEDS: FUROSEMIDE 40 MG/4 ML VIAL IV SCH (16:42)
[2024-10-23 16:49] VITALS: BP 138/86; PULSE 70; RESP 17; TEMP 98.2; O2SAT 96
[2024-10-23 17:34] LABS: Urine Protein, UAD 2+ (Negative)
[2024-10-23 17:42] LABS: Amphetamine Screen, Urine Neg (NEGATIVE); Barbiturate Scree,Urine Neg (NEGATIVE); Benzodiazephine Screen, Urine Neg (NEGATIVE); Cannabinoid Screen, Urine Neg (NEGATIVE); Cocaine Screen, Urine Neg (NEGATIVE); Opiate Scree,Urine Neg (NEGATIVE); Phencyclidine Screen, Urine Neg (NEGATIVE)
[2024-10-23] MEDS ORDERED: AZITHROMYCIN 500MG/ 250ML 250 ML IV SCH (20:00)
[2024-10-24] MEDS ORDERED: PANTOPRAZOLE 40 MG TAB PO SCH (06:00)
--- NOTE | 2024-10-24 09:30 | DVHDS2 ---
Discharge Summary Date of Admission Oct 22, 2024 at 18:56 Date of Discharge: Oct 23, 2024 Admitting Diagnosis Chest pain Labs/Diagnostic Data: Laboratory Results Test 10/23/24 16:30 10/23/24 16:27 10/23/24 11:13 10/23/24 09:30 Urine Color Colorless (Yellow) Urine Clarity Clear (Clear) Urine pH 7.0 (5.0-9.0) Urine Specific [address] 1.010 (1.001-1.035) Urine Protein 2+ (Negative) Urine Ketones Negative (Negative) Urine Blood 1+ /uL (Negative) Urine Nitrite Negative (Negative) Urine Bilirubin Negative (Negative) Urine Urobilinogen Normal mg/dL (Negative) Urine Leukocyte Esterase Negative /uL (Negative) Urine RBC 7 /hpf (0 - 3) Urine Microscopic WBC 1 /HPF (0-3) Urine Squamous Epithelial Cells None seen /hpf (<5) Urine Bacteria None seen /hpf (None Seen) Urine Glucose 4+ mg/dL (Normal) Urine Opiates Screen Neg (NEGATIVE) Urine Fentanyl Screen Neg (NEGATIVE) Urine Barbiturates Screen Neg (NEGATIVE) Urine Phencyclidine Screen Neg (NEGATIVE) Urine Amphetamines Screen Neg (NEGATIVE) Urine Benzodiazepines Screen Neg (NEGATIVE) Urine Cocaine Screen Neg (NEGATIVE) Urine Cannabinoids Screen Neg (NEGATIVE) POC Glucose 203 mg/dl (70-106) White Blood Count 6.7 10^3/uL (4.4-10.8) Red Blood Count 3.70 10^6/uL (4.5-5.90) Hemoglobin 11.5 g/dL (13.5-17.5) Hematocrit 33.4 % (41.0-53.0) Mean Corpuscular Volume 90.1 fL (80.0-100.0) Mean Corpuscular Hemoglobin 31.1 pg (28.0-32.0) Mean Corpuscular Hemoglobin Concent 34.5 g/dL (32.0-36.0) Red Cell Distribution Width 13.5 % (11.8-14.3) Platelet Count 179 10^3/uL (140-450) Mean Platelet Volume 7.2 fL (6.9-10.8) Neutrophils (%) (Auto) 58.0 % (37.0-80.0) Lymphocytes (%) (Auto) 18.4 % (10.0-50.0) Monocytes (%) (Auto) 5.7 % (0.0-12.0) Eosinophils (%) (Auto) 17.0 % (0.0-7.0) Basophils (%) (Auto) 0.9 % (0.0-2.0) Neutrophils # (Auto) 3.9 10 ^3/uL (1.6-8.6) Lymphocytes # (Auto) 1.2 10 ^3/uL (0.4-5.4) Monocytes # (Auto) 0.4 10 ^3/uL (0-1.3) Eosinophils # (Auto) 1.1 10 ^3/uL (0-0.8) Basophils # (Auto) 0.1 10 ^3/uL (0-0.2) Nucleated Red Blood Cells 0.0 % Sodium Level 140 mmol/L (136-145) Potassium Level 4.6 mmol/L (3.5-5.1) Chloride Level 108 mmol/L (98-107) Carbon Dioxide Level 25 mmol/L (20-31) Anion Gap 7 (5-15) Blood Urea Nitrogen 37 mg/dL (9-23) Creatinine 3.67 mg/dL (0.700-1.30) Glomerular Filtration Rate Calc 19 mL/min (>90) BUN/Creatinine Ratio 10.1 (10.0-20.0) Serum Glucose 221 mg/dL (74-106) Hemoglobin A1c 8.7 % A1C (<5.7) Calcium Level 8.3 mg/dL (8.7-10.4) Phosphorus Level 4.1 mg/dL (2.4-5.1) Magnesium Level 2.1 mg/dL (1.6-2.6) Total Bilirubin 0.4 mg/dL (0.2-1.0) Aspartate Amino Transferase (AST) 20 U/L (13-40) Alanine Aminotransferase (ALT) 20 U/L (7-40) Alkaline Phosphatase 153 U/L (46-116) Total Protein 5.3 g/dL (5.7-8.2) Albumin 3.3 g/dL (3.2-4.8) Vitamin D 25-Hydroxy 29.0 ng/mL (30.0-100) Influenza Type A Antigen Negative (Negative) Influenza Type B Antigen Negative (Negative) SARS-CoV-2 Antigen (Rapid) Negative (NEGATIVE) Test 10/22/24 19:45 10/22/24 16:55 Troponin I High Sensitivity 22 ng/L (</=54) Differential Total Cells Counted 100.0 (100) Neutrophils % (Manual) 64 (37.0-80.0) Band Neutrophils % (Manual) 1 Lymphocytes % (Manual) 14 (10.0-50.0) Monocytes % (Manual) 6 (0-12) Eosinophils % (Manual) 15 (0-7) Basophils % (Manual) 0 (0.0-2.0) Metamyelocytes % (manual) 0 Myelocytes % (Manual) 0 Promyelocytes % (Manual) 0 Blast Cells % (Manual) 0 Reactive Lymphocytes 0 Platelet Estimate Adequate Red Blood Cell Morphology Normal B-Type Natriuretic Peptide 434.33 pg/mL (0-100) Other Laboratory Tests 10/23/24 11:13 Brief Hx & Hospital Course: As per admitting team: "A 54 years old male with a past medical history of cardiomyopathy, HFrEF, EF 20%, CAD, hypertension, hyperlipidemia, ESRD on HD Saturday//Saturday at [facility], valvular heart disease, on ICD, on [facility] came with a complaint of chest pain. As per patient while he was having dialysis yesterday then after 45 minutes during dialysis he started having chest pain, pressure-like, central, no radiation, associated with shortness of breaths. Patient reported similar symptom is happening for last 1 and half weeks during dialysis. Patient denied any fever, cough, diarrhea, dysuria, acute dysarthria or change in vision. On Arrival blood pressure was 199/122, pulse 90> 99, EKG no acute ST-T wave changes. Lab revealed serum creatinine 3.13, GFR 23, blood sugar 222, BNP 434, troponin I WNL,, Eosinophil 15. Chest x-ray-Mild bibasilar airspace disease. From review of the previous documentation patient had an Echo 2D done in [facility] in April, EF was 20%. UDS negative, influenza and COVID test negative." Both cardiology, and nephrology evaluated the patient but the patient left AMA before the cardiac workup finished. Physical exam documented in the progress note of the day of leaving AMA. AICD in place. Consults/Reason for consult Cardiology for chest pain; nephrology for ESRD Condition at Discharge: Undetermined (Left AMA) Final Diagnosis/Problems List Chest pain; unspecified; left AMA Chronic HFrEF, NYHA class III Hypertensive urgency History of nonischemic cardiomyopathy Presence of AICD (Decisyon) Dyslipidemia End-stage renal disease on hemodialysis Type 2 diabetes mellitus Anxiety Discharge Disposition: AMA Discharge Instruct/Medications Diet: See Comment Diet comment: Left AMA Activity: See Comment Activity comment: Left AMA Follow Up/Referral: Left AMA Medications: Left AMA Scheduled Hydralazine Hcl (Hydralazine Hcl), 1 TAB PO BID Insulin Glargine (Lantus), 15 UNITS SC QAM Insulin Lispro (Human) (Humalog), 5 UNITS SC AC Sodium Bicarbonate (Sodium Bicarbonate), 650 MG PO TID Scheduled PRN Nitroglycerin (Ntrostat Sublingual), 0.4 MG SL Q5MINP PRN Discharge Statement: "Patient was advised to return to the ER or call 911 if any headaches, dizziness, shortness of breath, chest pain, abdominal pain, bleeding, fevers, or worsening of medical condition. Patient was counseled about treatment plan, medications, possible side effects, patientverbalized understanding. All questions were answered to the best of my ability. This discharge took greater then 30 minutes in planning, reviewing documentation, counseling the patient, and discussing with other team members." ASSESSMENT ASSESSMENT Assessment Date of Service: Oct 23, 2024 Billing Provider: RICHY WEINER MD Common Visit Codes: 16289-ZUB/OBS DISCH DAY >30min RICHY WEINER MD Oct 24, 2024 09:29
[2024-10-24] MEDS ORDERED: ISOSORBIDE MONONITRATE ER 60 MG TAB PO SCH (10:00)
[2024-10-24] MEDS ORDERED: METOPROLOL SUCCINATE XL 50 MG TAB PO SCH (10:00)
--- NOTE | 2024-10-24 14:58 | DVHSR ---
APPROVED REPORT EXAM: Two-dimensional and M-mode echocardiogram with Doppler and color Doppler. Blood Pressure: 146/86 mmHg INDICATION Chest Pain RISK FACTORS Height: 5'8", Weight: 160 DIMENSIONS LVDd5.5 (3.8-5.7cm)LA (2D)4.3 (1.9-4.0cm)Aortic Root3.1 (2.0-3.7cm) LVDs4.8 (2.5-4.0cm)LA (MM) (1.9-4.0cm)Aortic Cusp Exc1.8 (1.5-2.0cm) EF (%) 34.0 (55-70%)Rt. Atrium4.4 (1.9-4.0cm)Asc. Aorta2.9 cm IVSd0.9 (0.7-1.1cm)RV (D)4.2 (1.8-2.4cm) PWd0.6 (0.7-1.1cm) Mitral Valve MitralMitral Stenosis E wave0.51m/sMV Mean GR.mmHg A wave1.15m/sMV Peak GR.mmHg E/A ratio0.42D MVAcm2 DECEL [id number] 1/2 Timems Aortic Valve Aortic ValveAortic Stenosis V10.68m/Adwoa Mean GR.3mmHg V21.14m/Adwoa Peak GR.5mmHg LVOT Diameter2.0 (1.8-2.4cm)Doppler AVA1.87cm2 Pulmonic Valve V20.80m/s Conclusion LV IS SLIGHTLY DILATED MILD LV GLOBAL HYPOKINESIS LV EF IS 40% AND IS BORDERLINE DECREASED NORMAL VALVES NO EFFUSION
== END 2024-10-23 20:10 | disposition left against medical advice (07) | DRG 199 ==
LOC: EDBD 16:37 → ER 16:37 → OVERFLOW 18:56 → TELE-CENTR 10-23 03:29
PROVIDERS: ADMIT Internal Medicine; ATTEND Emergency Medicine
PROC: 4B02XTZ Measurement of Cardiac Defibrillator, External Approach (ICD-10-PCS; principal; 2024-10-23)
DX: I16.0 Hypertensive urgency (principal); I50.31 Acute diastolic (congestive) heart failure; I24.9 Acute ischemic heart disease, unspecified; I42.8 Other cardiomyopathies; N18.6 End stage renal disease; Z99.2 Dependence on renal dialysis; I13.2 Hypertensive heart and chronic kidney disease with heart failure and with stage 5 chronic kidney disease, or end stage renal disease; E11.22 Type 2 diabetes mellitus with diabetic chronic kidney disease; Z20.822 Contact with and (suspected) exposure to COVID-19; I25.10 Atherosclerotic heart disease of native coronary artery without angina pectoris; F41.9 Anxiety disorder, unspecified; E78.5 Hyperlipidemia, unspecified; Z53.29 Procedure and treatment not carried out because of patient's decision for other reasons; Z95.810 Presence of automatic (implantable) cardiac defibrillator; Z83.3 Family history of diabetes mellitus
CPT/HCPCS: 36415; 71045; 80048; 80053; 80307; 81001; 82306; 82607; 82746; 82962; 83036; 83735; 83880; 84100; 84484; 85007; 85025; 85027; 87081; 87426; 87804; 93005; 93306; 96365; 96366; 96372; 96375; 99291; G0378; J1815